=== PATIENT | female | born 1970 | race Caucasian/White ===

== ENCOUNTER → 2020-10-30 | Outpatient (CLI) | payer BC | LOC: LABWHC1 14:55 | PROVIDERS: ATTEND Internal Medicine | DX: U07.1 COVID-19 (principal); R50.9 Fever, unspecified | CPT/HCPCS: U0003; C9803; U0005 ==

== ENCOUNTER 2024-01-03 09:25 | Inpatient (IN) | payer BC ==
[2024-01-03] MEDS: ACETAMINOPHEN TAB 500 MG TAB PO STA (10:13)
[2024-01-03] MEDS: KETOROLAC 15 MG/ML 1 ML VIAL IVP STA (10:34)
[2024-01-03] MEDS: ONDANSETRON 4 MG/2 ML VIAL IVP STA (10:35)
[2024-01-03] MEDS: SODIUM CHLORIDE 0.9% 1,000 ML IV STA (10:36)
[2024-01-03] MEDS: SODIUM CHLORIDE 0.9% 500 ML 500 ML IV STA (10:36)
[2024-01-03 11:05] LABS: Basophils % (A) 0 %; Eosinophils # (A) 0.2 k/uL (0-0.7); Eosinophils % (A) 1 %; HGB 15.2 gm/dL (11.4-16.0); Lymphocytes # (A) 0.3 k/uL (1.0-4.8); Lymphocytes % (A) 1 %; MCH 33.9 pg (25.0-35.0); MCHC 35.4 g/dL (31.0-37.0); MCV 95.8 fL (80.0-100.0); Mean Platelet Volume 9.2; Monocytes # (A) 0.6 k/uL (0-1.0); Monocytes % (A) 3 %; Neutrophils # (A) 17.8 k/uL (1.3-7.7); Neutrophils % (A) 94 %; Platelet Count 185 k/uL (150-450); RBC 4.49 m/uL (3.80-5.40); RDW 13.2 % (11.5-15.5)
--- NOTE | 2024-01-03 11:11 | CT ---
EXAMINATION TYPE: CT abdomen pelvis wo con CT DLP: 351.1 mGycm, Automated exposure control for dose reduction was used. DATE OF EXAM: 01/03/2024 10:53 AM COMPARISON: CT abdomen pelvis most recent from 04/03/2012 CLINICAL INDICATION:Female, 53 years old with history of flank pain; Right flank pain with grojn pres sure. History of renal stones. TECHNIQUE: Axial CT abdomen pelvis wo con;Sagittal and coronal reformats were created on a separate workstation. Contrast used: mL of , (none if empty) Oral contrast used: without Oral Contrast (none if empty) FINDINGS: LOWER CHEST: Unremarkable ABDOMEN LIVER: Unremarkable GALLBLADDER AND BILE DUCTS: Unremarkable. PANCREAS: Unremarkable. SPLEEN: Unremarkable. ADRENAL GLANDS: Unremarkable. KIDNEYS AND URETERS: Moderate right hydronephrosis and obstructing 6 mm calculus in the distal right ureter. Additional right renal pelvis calculus measuring 9 x 7 mm. Obstructing left renal calculi irving suring 2 mm. PELVIS BLADDER: Unremarkable REPRODUCTIVE: Unremarkable. ABDOMEN & PELVIS STOMACH AND BOWEL: No evidence of bowel obstruction. Scattered colonic diverticula. PERITONEUM/RETROPERITONEUM: No evidence of pneumoperitoneum or free fluid. VASCULATURE: No evidence of aortic aneurysm. MUSCULOSKELETAL: No acute osseous abnormalities LYMPH NODES: No gross evidence for lymphadenopathy. SOFT TISSUE/ABDOMINAL WALL: Fat-containing umbilical hernia. IMPRESSION: 1. Moderate right hydroureteronephrosis secondary obstructing 9 x 7 mm calculus in the renal pelvic junction and 6 mm calculus in the distal right ureter. Additional nonobstructing right calculi. Urolo gy consultation recommended. 2. Obstructing left renal calculi. 3. Colonic diverticulosis.
[2024-01-03 11:12] LABS: ALT 19 U/L (4-34); AST 25 U/L (14-36); African American GFR (CKD) >90 (>60 ml/min/1.73 sqM); Albumin 4.4 g/dL (3.5-5.0); Alkaline Phosphatase 99 U/L (38-126); Anion Gap 4 mmol/L; Blood Urea Nitrogen 15 mg/dL (7-17); Calcium 9.5 mg/dL (8.4-10.2); Carbon Dioxide 27 mmol/L (22-30); Chloride 104 mmol/L (98-107); Glucose 126 mg/dL (74-99); Lipase 97 U/L (23-300); Non-African American GFR(CKD) >90 (>60 ml/min/1.73 sqM); Sodium 135 mmol/L (137-145); Total Bilirubin 0.9 mg/dL (0.2-1.3); Total Protein 6.8 g/dL (6.3-8.2)
--- NOTE | 2024-01-03 12:07 | ED ---
General Adult HPI - General Chief complaint: Back Pain/Injury Stated complaint: abd and back pain Time Seen by Provider: 01/03/24 09:30 Source: patient, family, RN notes reviewed Mode of arrival: ambulatory Limitations: no limitations - History of Present Illness Initial comments: 53-year-old female presents emergency department chief complaint of right flank pain. Patient states that sudden onset of symptoms. She states she has lower abdominal pressure urgency to urinate and noted hematuria. Patient states she does have a history of kidney stone was noted to have a fever today she states that she did have some chills at home associated nausea. Patient states that the makes the pain feel better or worse at this time. Patient denies chest pain shortness of breath did not take any Tylenol Motrin prior to arrival. - Related Data Allergies Allergy/AdvReac Type Severity Reaction Status Date / Time No Known Allergies Allergy Verified 01/03/24 09:29 Review of Systems ROS Statement: Those systems with pertinent positive or pertinent negative responses have been documented in the HPI. ROS Other: All systems not noted in ROS Statement are negative. Past Medical History Past Medical History: No Reported History Past Surgical History: Section Additional Past Surgical History / Comment(s): breast augmentation Past Psychological History: Anxiety General Exam Limitations: no limitations General appearance: alert, in no apparent distress Head exam: Present: atraumatic, normocephalic, normal inspection Neck exam: Present: normal inspection. Absent: tenderness, meningismus, lymphadenopathy Respiratory exam: Present: normal lung sounds bilaterally. Absent: respiratory distress, wheezes, rales, rhonchi, stridor Cardiovascular Exam: Present: regular rate, normal rhythm, normal heart sounds. Absent: systolic murmur, diastolic murmur, rubs, gallop, clicks GI/Abdominal exam: Present: soft, tenderness, normal bowel sounds. Absent: distended, guarding, rebound, rigid Back exam: Present: CVA tenderness (R). Absent: CVA tenderness (L) Neurological exam: Present: alert, oriented X3 Skin exam: Present: warm, dry, intact, normal color. Absent: rash Course Vital Signs 01/03/24 01/03/24 09:27 11:35 Temperature 102.0 F H 101.1 F H Pulse Rate 95 Respiratory 16 Rate Blood Pressure 124/70 O2 Sat by Pulse 98 Oximetry Medical Decision Making - Medical Decision Making Was pt. sent in by a medical professional or institution (MARCEL Orellana, GEOPHYSICAL PROSPECTING PERMIT AGENT, urgent care, hospital, or alf...) When possible be specific @ -No Did you speak to anyone other than the patient for history (EMS, parent, family, police, friend...)? What history was obtained from this source @ -No Did you review nursing and triage notes (agree or disagree)? Why? @ -I reviewed and agree with nursing and triage notes Were old charts reviewed (outside hosp., previous admission, EMS record, old EKG, old radiological studies, urgent care reports/EKG's, alf records)? Report findings @ -No old charts were reviewed Differential Diagnosis (chest pain, altered mental status, abdominal pain women, abdominal pain men, vaginal bleeding, weakness, fever, dyspnea, syncope, headache, dizziness, GI bleed, back pain, seizure, CVA, palpatations, mental health, musculoskeletal)? @ -Differential Abdominal Pain Women: Appendicitis, Cholecystitis, diverticulosis, ischemic bowel, pancreatitis, hepatitis, UTI, gastroenteritis, AAA, incarcerated hernia, bowel obstruction, constipation, inflammatory bowel, hepatitis, peptic ulcer disease, splenic infarction, perforated viscus, vulvitis, ovarian torsion, PID, kidney stone, placenta abruption, this is not meant to be an all-inclusive list EKG interpreted by me (3pts min.). @ -None X-rays interpreted by me (1pt min.). @ -None done CT interpreted by me (1pt min.). @ -CT of the abdomen pelvis showing evidence of right UPJ stone 9 x 7 mm, right distal ureter calculus 6 mm, hydronephrosis U/S interpreted by me (1pt. min.). @ -None done What testing was considered but not performed or refused? (CT, X-rays, U/S, labs)? Why? @ -None What meds were considered but not given or refused? Why? @ -None Did you discuss the management of the patient with other professionals (professionals i.e. MARCEL Orellana, GEOPHYSICAL PROSPECTING PERMIT AGENT, lab, RT, psych nurse, social worker delinquency prevention, tire trimmer hand, teacher, disciplinary hearing officer, field nurse case manager)? Give summary @ -Dr. Tony regarding concerns for septic stone and CT findings. Recommends IV antibiotics admission and probable stent placement. Patient case discussed with Dr. Mcmillan for medical admission Was smoking cessation discussed for >3mins.? @ -No Was critical care preformed (if so, how long)? @ -No Were there social determinants of health that impacted care today? How? (Homelessness, low income, unemployed, alcoholism, drug addiction, transportation, low edu. Level, literacy, decrease access to med. care, penitentiary, rehab)? @ -No Was there de-escalation of care discussed even if they declined (Discuss DNR or withdrawal of care, Hospice)? DNR status @ -No What co-morbidities impacted this encounter? (DM, HTN, Smoking, COPD, CAD, Cancer, CVA, ARF, Chemo, Hep., AIDS, mental health diagnosis, sleep apnea, morbid obesity)? @ -None Was patient admitted / discharged? Hospital course, mention meds given and route, prescriptions, significant lab abnormalities, going to OR and other pertinent info. @ -The patient is on to have septic ureteral calculus on the right patient has UPJ stone and a distal right ureter stone patient's pain is improved blood cultures drawn, IV fluid bolus and maintenance fluids ordered, IV antibiotics ordered. Undiagnosed new problem with uncertain prognosis? @ -No Drug Therapy requiring intensive monitoring for toxicity (Heparin, Nitro, Insulin, Cardizem)? @ -No Were any procedures done? @ -No Diagnosis/symptom? @ -Right septic ureteral calculus Acute, or Chronic, or Acute on Chronic? @ -Acute Uncomplicated (without systemic symptoms) or Complicated (systemic symptoms)? @ -Complicated Side effects of treatment? @ -No Exacerbation, Progression, or Severe Exacerbation? @ -No Poses a threat to life or bodily function? How? (Chest pain, [place], AL, pneumonia, PE, COPD, DKA, ARF, appy, cholecystitis, CVA, Diverticulitis, Homicidal, Suicidal, threat to staff... and all critical care pts) @ -Yes possible sepsis - Lab Data Result diagrams: 01/03/24 10:25 01/03/24 10:25 Lab Results 01/03/24 01/03/24 01/03/24 Range/Units 10:25 10:25 10:25 WBC 19.0 H (3.8-10.6) k/uL RBC 4.49 (3.80-5.40) m/uL Hgb 15.2 (11.4-16.0) gm/dL Hct 43.0 (34.0-46.0) % MCV 95.8 (80.0-100.0) fL MCH 33.9 (25.0-35.0) pg MCHC 35.4 (31.0-37.0) g/dL RDW 13.2 (11.5-15.5) % Plt Count 185 (150-450) k/uL MPV 9.2 Neutrophils % 94 % Lymphocytes % 1 % Monocytes % 3 % Eosinophils % 1 % Basophils % 0 % Neutrophils # 17.8 H (1.3-7.7) k/uL Lymphocytes # 0.3 L (1.0-4.8) k/uL Monocytes # 0.6 (0-1.0) k/uL Eosinophils # 0.2 (0-0.7) k/uL Basophils # 0.0 (0-0.2) k/uL Sodium 135 L (137-145) mmol/L Potassium 4.0 (3.5-5.1) mmol/L Chloride 104 (98-107) mmol/L Carbon Dioxide 27 (22-30) mmol/L Anion Gap 4 mmol/L BUN 15 (7-17) mg/dL Creatinine 0.75 (0.52-1.04) mg/dL Est GFR (CKD-EPI)AfAm >90 (>60 ml/min/1.73 sqM) Est GFR (CKD-EPI)NonAf >90 (>60 ml/min/1.73 sqM) Glucose 126 H (74-99) mg/dL Plasma Lactic Acid Shane (0.7-2.0) mmol/L Calcium 9.5 (8.4-10.2) mg/dL Total Bilirubin 0.9 (0.2-1.3) mg/dL AST 25 (14-36) U/L ALT 19 (4-34) U/L Alkaline Phosphatase 99 (38-126) U/L Total Protein 6.8 (6.3-8.2) g/dL Albumin 4.4 (3.5-5.0) g/dL Lipase 97 (23-300) U/L Urine Color Colorless Urine Appearance Cloudy H (Clear) Urine pH 6.5 (5.0-8.0) Ur Specific Hurley 1.010 (1.001-1.035) Urine Protein 1+ H (Negative) Urine Glucose (UA) Negative (Negative) Urine Ketones Negative (Negative) Urine Blood Moderate H (Negative) Urine Nitrite Negative (Negative) Urine Bilirubin Negative (Negative) Urine Urobilinogen <2.0 (<2.0) mg/dL Ur Leukocyte Esterase Large H (Negative) Urine RBC 133 H (0-5) /hpf Urine WBC >182 H (0-5) /hpf Ur Squamous Epith Cells <1 (0-4) /hpf Urine Bacteria Rare H (None) /hpf 01/03/24 Range/Units 10:25 WBC (3.8-10.6) k/uL RBC (3.80-5.40) m/uL Hgb (11.4-16.0) gm/dL Hct (34.0-46.0) % MCV (80.0-100.0) fL MCH (25.0-35.0) pg MCHC (31.0-37.0) g/dL RDW (11.5-15.5) % Plt Count (150-450) k/uL MPV Neutrophils % % Lymphocytes % % Monocytes % % Eosinophils % % Basophils % % Neutrophils # (1.3-7.7) k/uL Lymphocytes # (1.0-4.8) k/uL Monocytes # (0-1.0) k/uL Eosinophils # (0-0.7) k/uL Basophils # (0-0.2) k/uL Sodium (137-145) mmol/L Potassium (3.5-5.1) mmol/L Chloride (98-107) mmol/L Carbon Dioxide (22-30) mmol/L Anion Gap mmol/L BUN (7-17) mg/dL Creatinine (0.52-1.04) mg/dL Est GFR (CKD-EPI)AfAm (>60 ml/min/1.73 sqM) Est GFR (CKD-EPI)NonAf (>60 ml/min/1.73 sqM) Glucose (74-99) mg/dL Plasma Lactic Acid Shane 1.3 (0.7-2.0) mmol/L Calcium (8.4-10.2) mg/dL Total Bilirubin (0.2-1.3) mg/dL AST (14-36) U/L ALT (4-34) U/L Alkaline Phosphatase (38-126) U/L Total Protein (6.3-8.2) g/dL Albumin (3.5-5.0) g/dL Lipase (23-300) U/L Urine Color Urine Appearance (Clear) Urine pH (5.0-8.0) Ur Specific Hurley (1.001-1.035) Urine Protein (Negative) Urine Glucose (UA) (Negative) Urine Ketones (Negative) Urine Blood (Negative) Urine Nitrite (Negative) Urine Bilirubin (Negative) Urine Urobilinogen (<2.0) mg/dL Ur Leukocyte Esterase (Negative) Urine RBC (0-5) /hpf Urine WBC (0-5) /hpf Ur Squamous Epith Cells (0-4) /hpf Urine Bacteria (None) /hpf Disposition Clinical Impression: Right ureteral calculus, UTI (urinary tract infection) Disposition: ADMITTED IP TO THIS HOSP Condition: Fair Referrals: Yady Valentino MD [Primary Care Provider] - 1-2 days Time of Disposition: 12:32
[2024-01-03 12:15] LABS: Appearance,Urine Cloudy (Clear); Bacteria,Urine Rare /hpf; Bilirubin,Urine Negative (Negative); Blood,Urine Moderate (Negative); Color,Urine Colorless; Glucose,Urine (UA) Negative (Negative); Ketones,Urine Negative (Negative); Leukocyte Esterase,Urine Large (Negative); Nitrite,Urine Negative (Negative); PH, Urine 6.5 (5.0-8.0); Protein,Urine 1+ (Negative); RBC,Urine 133 /hpf (0-5); Squamous Epithelial Cell,Urine <1 /hpf (0-4); Urobilinogen,Urine <2.0 mg/dL (<2.0); WBC,Urine >182 /hpf (0-5)
[2024-01-03] MEDS ORDERED: NALOXONE 0.4 MG/ML 1 ML VIAL IV PRN (12:32)
[2024-01-03] MEDS ORDERED: ONDANSETRON 4 MG/2 ML VIAL IVP PRN (12:32)
[2024-01-03] MEDS: SODIUM CHLORIDE 0.9% 1,000 ML IV SCH (12:48)
[2024-01-03] MEDS: KETOROLAC 15 MG/ML 1 ML VIAL IVP PRN (15:23)
[2024-01-03] MEDS: HYDROmorphone 0.5 MG/0.5 ML SYRINGE IVP PRN (17:40)
[2024-01-04] MEDS: ACETAMINOPHEN TAB 325 MG TAB PO PRN (01:33)
[2024-01-04] MEDS: SERTRALINE 50 MG TAB PO SCH (08:35)
--- NOTE | 2024-01-04 09:08 | P.GSCN ---
History of Present Illness Consult date: 01/04/24 Reason for Consult: Right ureteral stone, UTI History of present illness: This is a 53-year-old female that presented to the hospital with intractable pain along the right flank associated with nausea, and fevers. Underwent a CT abdomen and pelvis in the ER that showed evidence of a 9 mm right-sided proximal stone, and a 6 mm right-sided distal stone. She was febrile on presentation with a temperature of 102. Denies any dysuria or gross hematuria. Does have previous history of kidney stones which she has passed spontaneously. At this point she continues to have right flank pain. Review of Systems - Constitutional Reports chills, Reports fever - EENT Ears, nose, mouth and throat: Denies dysphagia - Cardiovascular Denies chest pain, Denies shortness of breath - Respiratory Denies cough, Denies 7 - Gastrointestinal Reports abdominal pain, Reports nausea - Genitourinary Genitourinary: Reports flank pain, Reports kidney stones, Denies dysuria, Denies hematuria Past Medical History Past Medical History: No Reported History History of Any Multi-Drug Resistant Organisms: None Reported Past Surgical History: Section Additional Past Surgical History / Comment(s): breast augmentation Past Anesthesia/Blood Transfusion Reactions: No Reported Reaction Past Psychological History: Anxiety Smoking Status: Light tobacco smoker Medications and Allergies Home Medications Medication Instructions Recorded Confirmed Type Sertraline [Zoloft] 50 mg PO DAILY 01/03/24 01/03/24 History Allergies Allergy/AdvReac Type Severity Reaction Status Date / Time No Known Allergies Allergy Verified 01/03/24 12:56 Surgical - Exam Vital Signs Temp Pulse Resp BP Pulse Ox 102.0 F H 95 16 124/70 98 01/03/24 09:27 01/03/24 09:27 01/03/24 09:27 01/03/24 09:27 01/03/24 09:27 - General no distress, moderate pain - Eyes normal ocular movement, no pale - ENT normal nares, normal mucosa - Respiratory normal expansion, normal respiratory effort - Abdomen Abdomen: soft, non tender, no distended - Psychiatric oriented to time, oriented to person, oriented to place Results - Labs 01/03/24 10:25 01/03/24 10:25 Abnormal Lab Results - Last 24 Hours (Table) 01/03/24 01/03/24 01/03/24 Range/Units 10:25 10:25 10:25 WBC 19.0 H (3.8-10.6) k/uL Neutrophils # 17.8 H (1.3-7.7) k/uL Lymphocytes # 0.3 L (1.0-4.8) k/uL Sodium 135 L (137-145) mmol/L Glucose 126 H (74-99) mg/dL Urine Appearance Cloudy H (Clear) Urine Protein 1+ H (Negative) Urine Blood Moderate H (Negative) Ur Leukocyte Esterase Large H (Negative) Urine RBC 133 H (0-5) /hpf Urine WBC >182 H (0-5) /hpf Urine Bacteria Rare H (None) /hpf Diabetes panel 01/03/24 Range/Units 10:25 Sodium 135 L (137-145) mmol/L Potassium 4.0 (3.5-5.1) mmol/L Chloride 104 (98-107) mmol/L Carbon Dioxide 27 (22-30) mmol/L BUN 15 (7-17) mg/dL Creatinine 0.75 (0.52-1.04) mg/dL Glucose 126 H (74-99) mg/dL Calcium 9.5 (8.4-10.2) mg/dL AST 25 (14-36) U/L ALT 19 (4-34) U/L Alkaline Phosphatase 99 (38-126) U/L Total Protein 6.8 (6.3-8.2) g/dL Albumin 4.4 (3.5-5.0) g/dL Calcium panel 01/03/24 Range/Units 10:25 Calcium 9.5 (8.4-10.2) mg/dL Albumin 4.4 (3.5-5.0) g/dL Pituitary panel 01/03/24 Range/Units 10:25 Sodium 135 L (137-145) mmol/L Potassium 4.0 (3.5-5.1) mmol/L Chloride 104 (98-107) mmol/L Carbon Dioxide 27 (22-30) mmol/L BUN 15 (7-17) mg/dL Creatinine 0.75 (0.52-1.04) mg/dL Glucose 126 H (74-99) mg/dL Calcium 9.5 (8.4-10.2) mg/dL Adrenal panel 01/03/24 Range/Units 10:25 Sodium 135 L (137-145) mmol/L Potassium 4.0 (3.5-5.1) mmol/L Chloride 104 (98-107) mmol/L Carbon Dioxide 27 (22-30) mmol/L BUN 15 (7-17) mg/dL Creatinine 0.75 (0.52-1.04) mg/dL Glucose 126 H (74-99) mg/dL Calcium 9.5 (8.4-10.2) mg/dL Total Bilirubin 0.9 (0.2-1.3) mg/dL AST 25 (14-36) U/L ALT 19 (4-34) U/L Alkaline Phosphatase 99 (38-126) U/L Total Protein 6.8 (6.3-8.2) g/dL Albumin 4.4 (3.5-5.0) g/dL - Imaging CT scan - abdomen: image reviewed (9 mm right-sided proximal stone, 6 mm right- sided distal stone with severe hydronephrosis) Assessment and Plan Assessment: 53-year-old female presents to the hospital with sepsis secondary to 2 right- sided ureteral stones. Discussed with her given her obstructive stone and her sepsis I do recommend proceeding with stent insertion. Discussed risk benefit and rationale of surgery. Discussed she will eventually require right-sided ureteroscopy with holmium laser and stent removal at a later date once her infection resolves -Keep n.p.o., can have a diet after surgery -OR for cystoscopy and a right sided stent insertion
[2024-01-04] MEDS ORDERED: fentaNYL (PF) 50 MCG/ML 2 ML AMP ONE (09:16)
[2024-01-04] MEDS ORDERED: PROPOFOL 10 MG/ML 20 ML VIAL IV ONE (09:16)
[2024-01-04] MEDS ORDERED: MIDAZOLAM 2 MG/2 ML VIAL ONE (09:16)
[2024-01-04] MEDS ORDERED: KETAMINE HCL IN 0.9 % NACL 50 MG/5 ML SYRINGE ONE (09:16)
[2024-01-04 09:32] LABS: Basophils # (A) 0.06 X 10*3/uL (0.00-0.10); Basophils % (A) 0.3 %; Eosinophils # (A) 0.01 X 10*3/uL (0.04-0.35); Eosinophils % (A) 0.1 %; HCT 38.6 % (37.2-46.3); HGB 12.5 g/dL (12.0-15.0); Lymphocytes # (A) 0.84 X 10*3/uL (0.90-5.00); Lymphocytes % (A) 4.3 %; MCH 31.9 pg (27.0-32.0); MCHC 32.4 g/dL (32.0-37.0); MCV 98.5 FL (80.0-97.0); Mean Platelet Volume 11.8 FL (9.5-12.2); Monocytes # (A) 0.87 X 10*3/uL (0.20-1.00); Monocytes % (A) 4.4 %; NRBC Per 100 WBC 0 X 10*3/uL (0.00-0.01); Neutrophils # (A) 17.79 X 10*3/uL (1.80-7.70); Neutrophils % (A) 90.3 %; Platelet Count 132 X 10*3/uL (140-440); RBC 3.92 X 10*6/uL (4.10-5.20); RDW 14.2 % (11.5-14.5); WBC 19.68 X 10*3/uL (4.50-10.00)
--- NOTE | 2024-01-04 09:42 | P.OP ---
Date of Procedure: 01/04/24 Preoperative Diagnosis: Right ureteral stone Postoperative Diagnosis: Same Procedure(s) Performed: Cystoscopy with a right-sided stent insertion Implants: 6 Irish by 24 cm stent in the right ureter Anesthesia: MAC Surgeon: Chet Tony Estimated Blood Loss (ml): 1 Pathology: none sent Condition: stable Disposition: PACU Indications for Procedure: This is a 53-year-old female that presented to the hospital with intractable pain along the right flank associated with nausea, and fevers. Underwent a CT abdomen and pelvis in the ER that showed evidence of a 9 mm right-sided proximal stone, and a 6 mm right-sided distal stone. She was febrile on presentation with a temperature of 102. Discussed with her given the obstructive stone in her sepsis I do recommend proceeding with stent insertion. Risk benefit and rationale of surgery was discussed. Discussed she will eventually require right-sided ureteroscopy with holmium laser and stent removal as an outpatient once her infection resolves. Description of Procedure: Patient brought to the operating room, sedation was induced. She was prepped and draped in sterile fashion and placed in a dorsolithotomy position. Cystoscopy through the 22 Irish sheath was inserted per urethra, cystoscopy was performed showed no abnormality within the bladder. The right ureter orifice was visualized and intubated with a sensor wire, I was able to navigate the wire passed both stones and into the collecting system, of note the proximal stone was . Next a ureteral stent was passed over the wire, the proximal curl was visualized on fluoroscopy and the distal curl was visualized using the cystoscope, significant amount of cloudy urine drained from the kidney. Patient tolerated procedure was taken to recovery in stable condition
[2024-01-04] MEDS: IV FLUID CONTINUATION 600 ML IV ONE (09:52)
[2024-01-04 09:59] LABS: Blood Urea Nitrogen 15.9 mg/dL (9.0-27.0); Calcium 8.4 mg/dL (8.7-10.3); Carbon Dioxide 22.8 mmol/L (21.6-31.8); Chloride 104 mmol/L (96-109); Glucose 97 mg/dL (70-110); Potassium 4.2 mmol/L (3.5-5.5); Sodium 139 mmol/L (135-145)
--- NOTE | 2024-01-04 10:13 | FL ---
EXAMINATION TYPE: FL guidance operating room Intraoperative/procedural fluoroscopic services were pro vided. Total fluoroscopy time is 21.8 seconds with a total of 3 submitted images to PACS. Please see the operative/procedural note for further details. DAP: 3.7061 Gycm2
[2024-01-04] MEDS: ACETAMINOPHEN IV (For NPO) 1,000 MG in EMPTY BAG 1 BAG IVPB ONE (10:17)
[2024-01-04] MEDS: LACTATED RINGERS 1,000 ML BAG IV STA (10:40)
[2024-01-04] MEDS: CEFEPIME 2 GM in SODIUM CHLORIDE 0.9% 100 ML IVPB SCH (10:47)
[2024-01-04] MEDS: IV FLUID CONTINUATION 1,000 ML IV ONE (10:55)
--- NOTE | 2024-01-04 16:18 | P.HPIM ---
History of Present Illness H&P Date: 01/03/24 Chief Complaint: Abdominal/flank pain 53-year-old female presents emergency department chief complaint of right flank pain. Patient states that sudden onset of symptoms. She states she has lower abdominal pressure urgency to urinate and noted hematuria. Patient states she does have a history of kidney stone was noted to have a fever today she states that she did have some chills at home associated nausea. Patient states that the makes the pain feel better or worse at this time. Patient denies chest pain shortness of breath did not take any Tylenol Motrin prior to arrival. Underwent a CT abdomen and pelvis in the ER that showed evidence of a 9 mm right-sided proximal stone, and a 6 mm right-sided distal stone. She was febrile on presentation with a temperature of 102. Denies any dysuria or gross hematuria. Does have previous history of kidney stones which she has passed spontaneously. Lab review shows WBC of 19.2, hemoglobin of 15.2 and platelet count of 185, sodium 135, potassium 4.2, BUNs/creatinine of 15/0.75 and blood glucose of 126 UA is positive for blood, large leukocyte esterase WBCs greater than 182 and bacteria Review of Systems REVIEW OF SYSTEMS: CONSTITUTIONAL: No fever, no malaise, no fatigue. HEENT: No recent visual problems or hearing problems. Denied any sore throat. CARDIOVASCULAR: No chest pain, orthopnea, PND, no palpitations, no syncope. PULMONARY: No shortness of breath, no cough, no hemoptysis. GASTROINTESTINAL: No diarrhea, no nausea, no vomiting, no abdominal pain. NEUROLOGICAL: No headaches, no weakness, no numbness. HEMATOLOGICAL: Denies any bleeding or petechiae. GENITOURINARY: Denies any burning micturition, frequency, or urgency. MUSCULOSKELETAL/RHEUMATOLOGICAL: Denies any joint pain, swelling, or any muscle pain. ENDOCRINE: Denies any polyuria or polydipsia. The rest of the 14-point review of systems is negative. Past Medical History Past Medical History: No Reported History Past Surgical History: Section Additional Past Surgical History / Comment(s): breast augmentation Past Psychological History: Anxiety Medications and Allergies Home Medications Medication Instructions Recorded Confirmed Type Sertraline [Zoloft] 50 mg PO DAILY 01/03/24 01/03/24 History Allergies Allergy/AdvReac Type Severity Reaction Status Date / Time No Known Allergies Allergy Verified 01/03/24 12:56 Physical Exam Vitals: Vital Signs Temp Pulse Resp BP Pulse Ox 01/03/24 11:35 101.1 F H 01/03/24 09:27 102.0 F H 95 16 124/70 98 Intake and Output 01/02/24 01/03/24 01/03/24 22:59 06:59 14:59 Other: Weight 58.967 kg General appearance: alert, in no apparent distress Head exam: Present: atraumatic, normocephalic, normal inspection Neck exam: Present: normal inspection. Absent: tenderness, meningismus, lymphadenopathy Respiratory exam: Present: normal lung sounds bilaterally. Absent: respiratory distress, wheezes, rales, rhonchi, stridor Cardiovascular Exam: Present: regular rate, normal rhythm, normal heart sounds. Absent: systolic murmur, diastolic murmur, rubs, gallop, clicks GI/Abdominal exam: Present: soft, tenderness, normal bowel sounds. Absent: distended, guarding, rebound, rigid Back exam: Present: CVA tenderness (R). Absent: CVA tenderness (L) Neurological exam: Present: alert, oriented X3 Skin exam: Present: warm, dry, intact, normal color. Absent: rash Results CBC & Chem 7: 01/04/24 04:21 01/04/24 04:21 Labs: Abnormal Lab Results - Last 24 Hours (Table) 01/03/24 01/03/24 01/03/24 Range/Units 10:25 10:25 10:25 WBC 19.0 H (3.8-10.6) k/uL Neutrophils # 17.8 H (1.3-7.7) k/uL Lymphocytes # 0.3 L (1.0-4.8) k/uL Sodium 135 L (137-145) mmol/L Glucose 126 H (74-99) mg/dL Urine Appearance Cloudy H (Clear) Urine Protein 1+ H (Negative) Urine Blood Moderate H (Negative) Ur Leukocyte Esterase Large H (Negative) Urine RBC 133 H (0-5) /hpf Urine WBC >182 H (0-5) /hpf Urine Bacteria Rare H (None) /hpf Assessment and Plan Assessment: 1. Right ureteral calculus -- CT of the abdomen reveals 9 mm right-sided proximal stone, 6 mm right-sided distal stone with severe hydronephrosis -- Patient has been placed on IV fluids and IV antibiotics; pain control with IV morphine -Urology is consulted 2. UTI; patient has been placed on IV antibiotics in form of Rocephin 2 g IV daily; we will monitor CBC, CRP and procalcitonin; blood cultures and urine cultures obtained 3. Sepsis; white blood count is elevated at 19, blood pressure is low at 91/57 -- Patient has been placed on IV fluids; IV antibiotics -- We will monitor CBC, CRP and procalcitonin; further recommendations once blood culture and urine cultures available 4. Depression; continue with home dose of Zoloft DVT prophylaxis; SCDs given need for procedure and next 12 hours CODE STATUS; full code
--- NOTE | 2024-01-04 16:19 | P.PN ---
Subjective Progress Note Date: 01/04/24 53-year-old female presents emergency department chief complaint of right flank pain. Patient states that sudden onset of symptoms. She states she has lower abdominal pressure urgency to urinate and noted hematuria. Patient states she does have a history of kidney stone was noted to have a fever today she states that she did have some chills at home associated nausea. Patient states that the makes the pain feel better or worse at this time. Patient denies chest pain shortness of breath did not take any Tylenol Motrin prior to arrival. Underwent a CT abdomen and pelvis in the ER that showed evidence of a 9 mm right-sided proximal stone, and a 6 mm right-sided distal stone. She was febrile on presentation with a temperature of 102. Denies any dysuria or gross hematuria. Does have previous history of kidney stones which she has passed spontaneously. Lab review shows WBC of 19.2, hemoglobin of 15.2 and platelet count of 185, sodium 135, potassium 4.2, BUNs/creatinine of 15/0.75 and blood glucose of 126 UA is positive for blood, large leukocyte esterase WBCs greater than 182 and bacteria --Blood culture is positive for gram-negative organisms; white blood count remains elevated; patient has been placed on IV cefepime -- Will consult ID for further recommendations Objective - Vital Signs Vital signs: Vital Signs Temp 100.7 F H 01/04/24 09:49 Pulse 65 01/04/24 11:18 Resp 16 01/04/24 11:18 BP 92/50 01/04/24 11:28 Pulse Ox 98 01/04/24 11:18 FiO2 Intake & Output 01/03/24 01/04/24 01/04/24 18:59 06:59 18:59 Intake Total 1200 Balance 1200 Weight 58.967 kg Intake: IV 1200 Other: Voiding Method Toilet # Voids 4 # Bowel Movements 0 - Exam General appearance: alert, in no apparent distress Head exam: Present: atraumatic, normocephalic, normal inspection Neck exam: Present: normal inspection. Absent: tenderness, meningismus, lymphadenopathy Respiratory exam: Present: normal lung sounds bilaterally. Absent: respiratory distress, wheezes, rales, rhonchi, stridor Cardiovascular Exam: Present: regular rate, normal rhythm, normal heart sounds. Absent: systolic murmur, diastolic murmur, rubs, gallop, clicks GI/Abdominal exam: Present: soft, tenderness, normal bowel sounds. Absent: distended, guarding, rebound, rigid Back exam: Present: CVA tenderness (R). Absent: CVA tenderness (L) Neurological exam: Present: alert, oriented X3 Skin exam: Present: warm, dry, intact, normal color. Absent: rash - Labs CBC & Chem 7: 01/04/24 04:21 01/04/24 04:21 Labs: Abnormal Lab Results - Last 24 Hours (Table) 01/03/24 01/04/24 01/04/24 Range/Units 10:25 04:21 04:21 WBC 19.68 H (4.50-10.00) X 10*3/uL RBC 3.92 L (4.10-5.20) X 10*6/uL MCV 98.5 H (80.0-97.0) FL Plt Count 132 L (140-440) X 10*3/uL Immature Gran # 0.11 H (0.00-0.04) X 10*3/uL Neutrophils # 17.79 H (1.80-7.70) X 10*3/uL Lymphocytes # 0.84 L (0.90-5.00) X 10*3/uL Eosinophils # 0.01 L (0.04-0.35) X 10*3/uL Anion Gap 12.20 H (4.00-12.00) mmol/L Calcium 8.4 L (8.7-10.3) mg/dL Urine Appearance Cloudy H (Clear) Urine Protein 1+ H (Negative) Urine Blood Moderate H (Negative) Ur Leukocyte Esterase Large H (Negative) Urine RBC 133 H (0-5) /hpf Urine WBC >182 H (0-5) /hpf Urine Bacteria Rare H (None) /hpf Microbiology - Last 24 Hours (Table) 01/03/24 12:12 Blood Culture Gram Stain - Preliminary Blood Blood Culture - Preliminary Molecular ID 01/03/24 11:57 Blood Culture Gram Stain - Preliminary Blood Assessment and Plan Assessment: 1. Right ureteral calculus -- CT of the abdomen reveals 9 mm right-sided proximal stone, 6 mm right-sided d istal stone with severe hydronephrosis -- Patient has been placed on IV fluids and IV antibiotics; pain control with IV morphine -Urology is consulted 2. UTI; patient has been placed on IV antibiotics in form of Rocephin 2 g IV daily; we will monitor CBC, CRP and procalcitonin; blood cultures and urine cultures obtained 3. Sepsis; white blood count is elevated at 19, blood pressure is low at 91/57 -- Patient has been placed on IV fluids; IV antibiotics -- We will monitor CBC, CRP and procalcitonin; further recommendations once blood culture and urine cultures available 4. Depression; continue with home dose of Zoloft DVT prophylaxis; SCDs given need for procedure and next 12 hours CODE STATUS; full code
[2024-01-05 09:23] LABS: BUN/Creat Ratio 23.29 Ratio (12.00-20.00); Blood Urea Nitrogen 16.3 mg/dL (9.0-27.0); Calcium 7.9 mg/dL (8.7-10.3); Carbon Dioxide 19.7 mmol/L (21.6-31.8); Chloride 108 mmol/L (96-109); Glucose 87 mg/dL (70-110); Potassium 3.8 mmol/L (3.5-5.5); Sodium 140 mmol/L (135-145)
--- NOTE | 2024-01-05 09:42 | P.PN ---
Subjective Progress Note Date: 01/05/24 The patient underwent cystoscopy with placement of a right double-J catheter for an obstructing stone and pyelonephrosis yesterday by . She has done well overnight. She still doesn't feel great. Her vital signs are stable. Objective - Vital Signs Vital signs: Vital Signs Temp 99.8 F H 01/05/24 07:29 Pulse 60 01/05/24 08:00 Resp 19 01/05/24 08:00 BP 139/77 01/05/24 07:29 Pulse Ox 95 01/05/24 07:29 FiO2 Intake & Output 01/04/24 01/05/24 01/05/24 18:59 06:59 18:59 Intake Total 2470 Balance 2470 Intake: IV 1200 Intake, IV Titration 1270 Amount Cefepime 2 gm In Sodium 100 Chloride 0.9% 100 ml @ 25 mls/hr IVPB Q8HR [facility] Rx# :[id number] Sodium Chloride 0.9% 1, 1170 000 ml @ 130 mls/hr IV . Q7H42M [facility] Rx#:[id number] Other: Voiding Method Toilet Toilet Toilet # Voids 5 5 2 # Bowel Movements 0 - Labs CBC & Chem 7: 01/04/24 04:21 01/05/24 04:26 Labs: Abnormal Lab Results - Last 24 Hours (Table) 01/04/24 01/04/24 01/05/24 Range/Units 04:21 11:48 04:26 Carbon Dioxide (21.6-31.8) mmol/L Anion Gap 12.20 H (4.00-12.00) mmol/L BUN/Creatinine Ratio (12.00-20.00) Ratio Calcium 8.4 L (8.7-10.3) mg/dL Procalcitonin 1.34 H 1.01 H (0.02-0.09) ng/mL 01/05/24 Range/Units 04:26 Carbon Dioxide 19.7 L (21.6-31.8) mmol/L Anion Gap 12.30 H (4.00-12.00) mmol/L BUN/Creatinine Ratio 23.29 H (12.00-20.00) Ratio Calcium 7.9 L (8.7-10.3) mg/dL Procalcitonin (0.02-0.09) ng/mL Microbiology - Last 24 Hours (Table) 01/03/24 10:25 Urine Culture - Preliminary Urine,Voided Gram Neg Bacilli 01/03/24 12:12 Blood Culture Gram Stain - Preliminary Blood Blood Culture - Preliminary Molecular ID 01/03/24 11:57 Blood Culture Gram Stain - Preliminary Blood Assessment and Plan Assessment: Impression: Status post stent placement for obstructing right ureteral stone, urinary tract infection with sepsis and pyelonephrosis. Recommendations: The patient will continue to have IV antibiotics. Upon discharge she should follow-up in our office. He'll need eventual cystoscopy and stent with stone removal. This is been discussed at length with the patient . She now appears to comprehend the status of her situation.
[2024-01-05 09:43] LABS: Basophils # (A) 0.03 X 10*3/uL (0.00-0.10); Basophils % (A) 0.3 %; Eosinophils # (A) 0.07 X 10*3/uL (0.04-0.35); Eosinophils % (A) 0.6 %; HCT 37.3 % (37.2-46.3); HGB 12.2 g/dL (12.0-15.0); Lymphocytes # (A) 0.65 X 10*3/uL (0.90-5.00); Lymphocytes % (A) 5.5 %; MCH 31.6 pg (27.0-32.0); MCHC 32.7 g/dL (32.0-37.0); MCV 96.6 FL (80.0-97.0); Mean Platelet Volume 11.9 FL (9.5-12.2); Monocytes # (A) 0.69 X 10*3/uL (0.20-1.00); Monocytes % (A) 5.8 %; NRBC Per 100 WBC 0 X 10*3/uL (0.00-0.01); Neutrophils # (A) 10.42 X 10*3/uL (1.80-7.70); Neutrophils % (A) 87.4 %; Platelet Count 102 X 10*3/uL (140-440); RBC 3.86 X 10*6/uL (4.10-5.20); RDW 14.1 % (11.5-14.5); WBC 11.91 X 10*3/uL (4.50-10.00)
--- NOTE | 2024-01-05 11:09 | P.CONS ---
History of Present Illness - Reason for Consult Consult date: 01/05/24 - History of Present Illness Patient is a 53-year-old female with no significant past medical history reported presenting to the hospital 2 days ago for evaluation of right flank pain that started the day of presentation to the hospital more of a sudden onset patient describes the pain to be sharp moderate to severe intensity did have some lower abdominal pressure urgency to urinate and did have some hematuria with the same and the patient was evaluated on presentation to the hospital the patient was febrile with a temperature of 102 F patient was not tachycardic hypotensive or hypoxic and no need for supplemental oxygen patient did have a white count of 19,000 repeat is 19.68 white count is pending from this morning creatinine is 1.0 urine was positive patient did have a abdominal pelvis CT moderate right hydroureteronephrosis secondary to obstructing 9X 7 mm stone with the patient was evaluated by urology and the patient status post cystoscopy and right ureteral stent placement patient blood cultures came back positive with Enterobacter infectious disease was consulted for further management of antibiotic therapy Past Medical History Past Medical History: No Reported History History of Any Multi-Drug Resistant Organisms: None Reported Past Surgical History: Section Additional Past Surgical History / Comment(s): breast augmentation Past Anesthesia/Blood Transfusion Reactions: No Reported Reaction Past Psychological History: Anxiety Medications and Allergies Home Medications Medication Instructions Recorded Confirmed Type Sertraline [Zoloft] 50 mg PO DAILY 01/03/24 01/03/24 History Allergies Allergy/AdvReac Type Severity Reaction Status Date / Time No Known Allergies Allergy Verified 01/03/24 12:56 Physical Exam Vitals: Vital Signs Temp Pulse Resp BP Pulse Ox 01/05/24 07:29 99.8 F H 60 19 139/77 95 01/05/24 01:55 99.5 F 68 16 137/84 98 01/04/24 18:15 98.0 F 79 18 113/76 96 01/04/24 14:00 97.5 F L 63 18 93/60 96 01/04/24 13:45 55 L 85/57 97 01/04/24 13:30 64 93/58 98 01/04/24 13:15 65 91/57 01/04/24 12:45 64 99/66 95 01/04/24 12:30 65 84 L 01/04/24 12:15 58 L 104/68 97 01/04/24 12:00 58 L 100/66 95 01/04/24 11:46 98.4 F 70 17 97/61 97 01/04/24 11:45 98.4 F 70 97/61 01/04/24 11:28 92/50 01/04/24 11:18 65 16 103/58 98 01/04/24 11:15 88/50 01/04/24 11:10 99/54 01/04/24 11:05 61 18 101/52 98 01/04/24 10:50 64 16 95/54 98 01/04/24 10:35 73 16 96/51 91 L 01/04/24 10:20 75 18 97/50 91 L 01/04/24 10:04 77 16 102/56 93 L 01/04/24 09:49 100.7 F H 80 18 105/55 97 Intake and Output 01/04/24 01/05/24 01/05/24 22:59 06:59 14:59 Intake Total 1270 Balance 1270 Intake: Intake, IV Titration 1270 Amount Cefepime 2 gm In Sodium 100 Chloride 0.9% 100 ml @ 25 mls/hr IVPB Q8HR [facility] Rx# :[id number] Sodium Chloride 0.9% 1, 1170 000 ml @ 130 mls/hr IV . Q7H42M [facility] Rx#:[id number] Other: Voiding Method Toilet # Voids 5 5 Results CBC & Chem 7: 01/05/24 04:26 01/05/24 04:26 Labs: Abnormal Lab Results - Last 24 Hours (Table) 01/04/24 01/04/24 01/04/24 Range/Units 04:21 04:21 11:48 WBC 19.68 H (4.50-10.00) X 10*3/uL RBC 3.92 L (4.10-5.20) X 10*6/uL MCV 98.5 H (80.0-97.0) FL Plt Count 132 L (140-440) X 10*3/uL Immature Gran # 0.11 H (0.00-0.04) X 10*3/uL Neutrophils # 17.79 H (1.80-7.70) X 10*3/uL Lymphocytes # 0.84 L (0.90-5.00) X 10*3/uL Eosinophils # 0.01 L (0.04-0.35) X 10*3/uL Anion Gap 12.20 H (4.00-12.00) mmol/L Calcium 8.4 L (8.7-10.3) mg/dL Procalcitonin 1.34 H (0.02-0.09) ng/mL Microbiology - Last 24 Hours (Table) 01/03/24 10:25 Urine Culture - Preliminary Urine,Voided Gram Neg Bacilli 01/03/24 12:12 Blood Culture Gram Stain - Preliminary Blood Blood Culture - Preliminary Molecular ID 01/03/24 11:57 Blood Culture Gram Stain - Preliminary Blood Assessment and Plan Plan: 1patient presented to the hospital with sepsis in this patient who did have a fever elevated white count source is complicated UTI in this patient who did have a right-sided hydroureteronephrosis requiring cystoscopy and right ureteral stent placement likely from enteric gram-negative bacteria. 2patient with a type of bacteremia source is likely complicated UTI. 3cefepime 2 g every 8 hours while waiting for the final sensitivities. We will follow on clinical condition and cultures to further adjust medication if needed Thank you for this consultation we will follow the patient along with you Dictation was produced using [employer] dictation software. please excuse any grammatical, word or spelling errors.
--- NOTE | 2024-01-06 00:02 | P.PN ---
Subjective Progress Note Date: 01/05/24 53-year-old female presents emergency department chief complaint of right flank pain. Patient states that sudden onset of symptoms. She states she has lower abdominal pressure urgency to urinate and noted hematuria. Patient states she does have a history of kidney stone was noted to have a fever today she states that she did have some chills at home associated nausea. Patient states that the makes the pain feel better or worse at this time. Patient denies chest pain shortness of breath did not take any Tylenol Motrin prior to arrival. Underwent a CT abdomen and pelvis in the ER that showed evidence of a 9 mm right-sided proximal stone, and a 6 mm right-sided distal stone. She was febrile on presentation with a temperature of 102. Denies any dysuria or gross hematuria. Does have previous history of kidney stones which she has passed spontaneously. Lab review shows WBC of 19.2, hemoglobin of 15.2 and platelet count of 185, sodium 135, potassium 4.2, BUNs/creatinine of 15/0.75 and blood glucose of 126 UA is positive for blood, large leukocyte esterase WBCs greater than 182 and bacteria --Blood culture is positive for gram-negative organisms; white blood count remains elevated; patient has been placed on IV cefepime. 01/05/2024 Patient is lying in the bed. Awake alert and oriented. Currently on room air. Still complains of right flank discomfort. Denies any dysuria or hematuria. No complaints of chest pain or shortness of breath. No fever no chills. Tmax 99.8 this morning. Patient is being continued on antibiotics on cefepime. Urine culture showed gram-negative bacilli and blood cultures showed Enterobacter cloacae complex. ID is on board. Laboratory pressure WBC 11.9 hemoglobin 12.2 and platelets 102 WBC trending down from 19.6 yesterday. BUN 16.3 and creatinine 0.7 and procalcitonin level trending down to 1.01 from 1.34. Current medications reviewed. Objective - Vital Signs Vital signs: Vital Signs Temp 99.8 F H 01/05/24 07:29 Pulse 60 01/05/24 08:00 Resp 19 01/05/24 08:00 BP 139/77 01/05/24 07:29 Pulse Ox 95 01/05/24 07:29 FiO2 Intake & Output 01/04/24 01/05/24 01/05/24 18:59 06:59 18:59 Intake Total 2470 Balance 2470 Intake: IV 1200 Intake, IV Titration 1270 Amount Cefepime 2 gm In Sodium 100 Chloride 0.9% 100 ml @ 25 mls/hr IVPB Q8HR [facility] Rx# :[id number] Sodium Chloride 0.9% 1, 1170 000 ml @ 130 mls/hr IV . Q7H42M [facility] Rx#:[id number] Other: Voiding Method Toilet Toilet Toilet # Voids 5 5 2 # Bowel Movements 0 - Exam - Exam General appearance: alert, in no apparent distress Head exam: Present: atraumatic, normocephalic, normal inspection Neck exam: Present: normal inspection. Absent: tenderness, meningismus, lymphadenopathy Respiratory exam: Present: normal lung sounds bilaterally. Absent: respiratory distress, wheezes, rales, rhonchi, stridor Cardiovascular Exam: Present: regular rate, normal rhythm, normal heart sounds. Absent: systolic murmur, diastolic murmur, rubs, gallop, clicks GI/Abdominal exam: Present: soft, tenderness, normal bowel sounds. Absent: distended, guarding, rebound, rigid Back exam: Present: CVA tenderness (R). Absent: CVA tenderness (L) Neurological exam: Present: alert, oriented X3 Skin exam: Present: warm, dry, intact, normal color. Absent: rash - Labs CBC & Chem 7: 01/05/24 04:26 01/05/24 04:26 Labs: Abnormal Lab Results - Last 24 Hours (Table) 01/04/24 01/05/24 01/05/24 Range/Units 11:48 04:26 04:26 WBC 11.91 H (4.50-10.00) X 10*3/uL RBC 3.86 L (4.10-5.20) X 10*6/uL Plt Count 102 L (140-440) X 10*3/uL Immature Gran # 0.05 H (0.00-0.04) X 10*3/uL Neutrophils # 10.42 H (1.80-7.70) X 10*3/uL Lymphocytes # 0.65 L (0.90-5.00) X 10*3/uL Carbon Dioxide (21.6-31.8) mmol/L Anion Gap (4.00-12.00) mmol/L BUN/Creatinine Ratio (12.00-20.00) Ratio Calcium (8.7-10.3) mg/dL Procalcitonin 1.34 H 1.01 H (0.02-0.09) ng/mL 01/05/24 Range/Units 04:26 WBC (4.50-10.00) X 10*3/uL RBC (4.10-5.20) X 10*6/uL Plt Count (140-440) X 10*3/uL Immature Gran # (0.00-0.04) X 10*3/uL Neutrophils # (1.80-7.70) X 10*3/uL Lymphocytes # (0.90-5.00) X 10*3/uL Carbon Dioxide 19.7 L (21.6-31.8) mmol/L Anion Gap 12.30 H (4.00-12.00) mmol/L BUN/Creatinine Ratio 23.29 H (12.00-20.00) Ratio Calcium 7.9 L (8.7-10.3) mg/dL Procalcitonin (0.02-0.09) ng/mL Microbiology - Last 24 Hours (Table) 01/03/24 11:57 Blood Culture Gram Stain - Preliminary Blood Blood Culture - Preliminary Enterobacter cloacae Complex 01/03/24 12:12 Blood Culture Gram Stain - Preliminary Blood Blood Culture - Preliminary Enterobacter cloacae Complex Molecular ID 01/03/24 10:25 Urine Culture - Preliminary Urine,Voided Gram Neg Bacilli Assessment and Plan Assessment: 1. Right ureteral calculus -- CT of the abdomen reveals 9 mm right-sided proximal stone, 6 mm right-sided distal stone with severe hydronephrosis - Urology is following. Patient is status post cystoscopy with right-sided stent insertion on 01/04/2024 --Continue with IV antibiotics; pain control with IV morphine. Patient is tolerating oral diet. 2. Acute UTI with gram-negative bacilli.; patient has been placed on IV antibiotics in form of Rocephin 2 g IV daily, changed to cefepime. Follow-up final blood cultures and urine culture.; we will monitor CBC, CRP and procalcitonin; ID is on board. 3. Sepsis; white blood count is elevated at 19, blood pressure is low at 91/57 -- Patient was given IV fluids; continue with IV antibiotics -- We will monitor CBC, CRP and procalcitonin; further recommendations once blood culture and urine cultures available 4. Depression; continue with home dose of Zoloft DVT prophylaxis; SCDs given need for procedure and next 12 hours CODE STATUS; full code Time with Patient: Greater than 30
[2024-01-06] MEDS: HEPARIN SODIUM,PORCINE 5,000 UNIT/ML 1 ML VIAL SQ SCH (00:14)
[2024-01-06] MEDS: SODIUM CHLORIDE 0.9% 1,000 ML IV SCH (00:28)
[2024-01-06 09:03] LABS: Chloride 110 mmol/L (96-109); Glucose 94 mg/dL (70-110); Potassium 3.4 mmol/L (3.5-5.5); Sodium 140 mmol/L (135-145)
[2024-01-06 09:04] LABS: Basophils # (A) 0.02 X 10*3/uL (0.00-0.10); Basophils % (A) 0.3 %; Calcium 7.8 mg/dL (8.7-10.3); Carbon Dioxide 19.7 mmol/L (21.6-31.8); Eosinophils % (A) 1.3 %; HCT 34.2 % (37.2-46.3); HGB 11.3 g/dL (12.0-15.0); Lymphocytes # (A) 0.96 X 10*3/uL (0.90-5.00); Lymphocytes % (A) 12.3 %; MCH 31.7 pg (27.0-32.0); MCV 96.1 FL (80.0-97.0); Mean Platelet Volume 12.5 FL (9.5-12.2); Monocytes # (A) 0.82 X 10*3/uL (0.20-1.00); Monocytes % (A) 10.5 %; NRBC Per 100 WBC 0 X 10*3/uL (0.00-0.01); Neutrophils # (A) 5.86 X 10*3/uL (1.80-7.70); Neutrophils % (A) 75.2 %; Platelet Count 98 X 10*3/uL (140-440); RBC 3.56 X 10*6/uL (4.10-5.20); WBC 7.79 X 10*3/uL (4.50-10.00)
--- NOTE | 2024-01-06 13:47 | P.PN ---
Subjective Progress Note Date: 01/06/24 Principal diagnosis: Reason for follow-up is gram-negative bacteremia and complicated UTI Patient is a 53-year-old female with no significant past medical history reported presenting to the hospital with right flank pain and this patient has been diagnosed with the complicated UTI CT did shows moderate right hydroureteronephrosis status post cystoscopy and right ureteral stent placement patient did have Enterobacter bacteremia prompting this consultation. On today's evaluation that is 01/06/2024, the patient continues to be afebrile, the patient is on room air and breathing comfortably, the Pt denies having any chest pain or cough, the patient denies having any any nausea vomiting or any diarrhea patient has right flank pain has decreased in intensity. Patient white count normalized to 7.79, creatinine 0.6 blood culture with Enterobacter sensitivities pending Objective - Vital Signs Vital signs: Vital Signs Temp 99.2 F 01/06/24 06:48 Pulse 54 L 01/06/24 06:48 Resp 15 01/06/24 06:48 BP 117/58 01/06/24 06:48 Pulse Ox 97 01/06/24 06:48 FiO2 Intake & Output 01/05/24 01/06/24 01/06/24 18:59 06:59 18:59 Other: Voiding Method Toilet Toilet # Voids 3 3 # Bowel Movements 0 - Exam Middle-age female lying in bed in no distress Respiratory system unlabored breathing decreased breath sound the base Heart S1-S2 regular Abdominal soft, no tenderness Extremities no edema feet Patient is awake alert oriented x 3 mood and affect is normal Exam compleetd with help of [employer]IR[employer] - Labs CBC & Chem 7: 01/06/24 03:40 01/06/24 03:40 Labs: Abnormal Lab Results - Last 24 Hours (Table) 01/05/24 01/05/24 01/05/24 Range/Units 04:26 04:26 04:26 WBC 11.91 H (4.50-10.00) X 10*3/uL RBC 3.86 L (4.10-5.20) X 10*6/uL Hgb (12.0-15.0) g/dL Hct (37.2-46.3) % Plt Count 102 L (140-440) X 10*3/uL MPV (9.5-12.2) FL Immature Gran # 0.05 H (0.00-0.04) X 10*3/uL Neutrophils # 10.42 H (1.80-7.70) X 10*3/uL Lymphocytes # 0.65 L (0.90-5.00) X 10*3/uL Potassium (3.5-5.5) mmol/L Chloride (96-109) mmol/L Carbon Dioxide 19.7 L (21.6-31.8) mmol/L Anion Gap 12.30 H (4.00-12.00) mmol/L BUN/Creatinine Ratio 23.29 H (12.00-20.00) Ratio Calcium 7.9 L (8.7-10.3) mg/dL Procalcitonin 1.01 H (0.02-0.09) ng/mL 01/06/24 01/06/24 Range/Units 03:40 03:40 WBC (4.50-10.00) X 10*3/uL RBC 3.56 L (4.10-5.20) X 10*6/uL Hgb 11.3 L (12.0-15.0) g/dL Hct 34.2 L (37.2-46.3) % Plt Count 98 L (140-440) X 10*3/uL MPV 12.5 H (9.5-12.2) FL Immature Gran # (0.00-0.04) X 10*3/uL Neutrophils # (1.80-7.70) X 10*3/uL Lymphocytes # (0.90-5.00) X 10*3/uL Potassium 3.4 L (3.5-5.5) mmol/L Chloride 110 H (96-109) mmol/L Carbon Dioxide 19.7 L (21.6-31.8) mmol/L Anion Gap (4.00-12.00) mmol/L BUN/Creatinine Ratio (12.00-20.00) Ratio Calcium 7.8 L (8.7-10.3) mg/dL Procalcitonin (0.02-0.09) ng/mL Microbiology - Last 24 Hours (Table) 01/03/24 11:57 Blood Culture Gram Stain - Preliminary Blood Blood Culture - Preliminary Enterobacter cloacae Complex 01/03/24 12:12 Blood Culture Gram Stain - Preliminary Blood Blood Culture - Preliminary Enterobacter cloacae Complex Molecular ID Assessment and Plan (1) Bacteremia due to Enterobacter species Current Visit: Yes Status: Acute Code(s): R78.81 - BACTEREMIA; B96.89 - OTH BACTERIAL AGENTS THE CAUSE OF DISEASES CLASSD [id number] SNOMED Code(s): 758420714250 (2) UTI (urinary tract infection) Current Visit: Yes Status: Acute Code(s): N39.0 - URINARY TRACT INFECTION, SITE NOT SPECIFIED SNOMED Code(s): 75173141 Plan: 1patient presented to the hospital with sepsis in this patient who did have a fever elevated white count source is complicated UTI in this patient who did have a right-sided hydroureteronephrosis requiring cystoscopy and right ureteral stent placement likely from enteric gram-negative bacteria. 2patient with Enterobacter bacteremia source is likely complicated UTI. 3patient to cefepime 2 g every 8 hours while waiting for the final sensitivities to determine her discharge antibiotics u Dictation was produced using [employer] dictation software. please excuse any grammatical, word or spelling errors. Time with Patient: Less than 30
[2024-01-06] MEDS: IPRATROPIUM-ALBUTEROL 3 ML NEB INHALATION PRN (22:15)
--- NOTE | 2024-01-06 22:33 | XR ---
EXAMINATION TYPE: XR chest 1V portable DATE OF EXAM: 01/06/2024 CLINICAL HISTORY: Difficulty breathing progress study. TECHNIQUE: Single AP portable upright view of the chest is obtained. COMPARISON: Chest x-ray from October 27, 2013 FINDINGS: Cardiac silhouette size upper limits of normal. Mild to moderate central vascular congestion is now present. No pleural effusion or pneumothorax seen bilaterally. Osseous structures are intact. IMPRESSION: New mild to moderate central vascular congestion consistent with fluid overload state.
[2024-01-06] MEDS: SIMETHICONE 40 MG/0.6 ML DROPS 2,000 MG/30 ML BOTTLE PO PRN (22:49)
[2024-01-06] MEDS: FUROSEMIDE 10 MG/ML 2 ML VIAL IV ONE (23:01)
[2024-01-07] MEDS ORDERED: Potassium Replacement Protocol 1 EACH MISC MISCELLANE PRN ×2 (02:47→09:39)
--- NOTE | 2024-01-07 06:13 | P.PN ---
Subjective Progress Note Date: 01/06/24 53-year-old female presents emergency department chief complaint of right flank pain. Patient states that sudden onset of symptoms. She states she has lower abdominal pressure urgency to urinate and noted hematuria. Patient states she does have a history of kidney stone was noted to have a fever today she states that she did have some chills at home associated nausea. Patient states that the makes the pain feel better or worse at this time. Patient denies chest pain shortness of breath did not take any Tylenol Motrin prior to arrival. Underwent a CT abdomen and pelvis in the ER that showed evidence of a 9 mm right-sided proximal stone, and a 6 mm right-sided distal stone. She was febrile on presentation with a temperature of 102. Denies any dysuria or gross hematuria. Does have previous history of kidney stones which she has passed spontaneously. Lab review shows WBC of 19.2, hemoglobin of 15.2 and platelet count of 185, sodium 135, potassium 4.2, BUNs/creatinine of 15/0.75 and blood glucose of 126 UA is positive for blood, large leukocyte esterase WBCs greater than 182 and bacteria --Blood culture is positive for gram-negative organisms; white blood count remains elevated; patient has been placed on IV cefepime. 01/05/2024 Patient is lying in the bed. Awake alert and oriented. Currently on room air. Still complains of right flank discomfort. Denies any dysuria or hematuria. No complaints of chest pain or shortness of breath. No fever no chills. Tmax 99.8 this morning. Patient is being continued on antibiotics on cefepime. Urine culture showed gram-negative bacilli and blood cultures showed Enterobacter cloacae complex. ID is on board. Laboratory pressure WBC 11.9 hemoglobin 12.2 and platelets 102 WBC trending down from 19.6 yesterday. BUN 16.3 and creatinine 0.7 and procalcitonin level trending down to 1.01 from 1.34. Current medications reviewed. 01/06/2024 Patient is seen in follow-up today reporting she is afebrile and her pain is somewhat controlled with less intense on the right flank. Urology and infectious disease following as well and patient is maintained on antibiotics with culture showing Enterobacter. Blood cultures are positive with repeat cultures obtained and pending at this time. Urology recommending continuing antibiotics and outpatient follow-up to discuss treatment plan outpatient. Patient is currently afebrile with no reports of chest pain or shortness of breath. Patient reports tolerating diet with no reported nausea or vomiting. Patient reports bloating and gas with no bowel movement as of yet. Will add gas drops Review of systems: Constitutional: No reports of fatigue, fever, or chills Cardiovascular: No reports of chest pain or palpitations Respiratory: No reports of shortness of breath or cough GI: No reports of nausea, vomiting, or diarrhea, reports no bowel movement and reporting having gas with bloating : No reports of dysuria or retention Neurovascular: No reports of weakness or numbness All medications have been reviewed Physical exam: Gen: This is a 53-year-old female who is awake, alert and oriented x 3, well- developed HEENT: Head is atraumatic, normocephalic. Pupils equal, round. Sclerae is anicteric. NECK: Supple. No JVD. No lymphadenopathy. No thyromegaly. LUNGS: Clear to auscultation. No wheezes or rhonchi. No intercostal retractions. HEART: Regular rate and rhythm. No murmur. ABDOMEN: Soft. Bowel sounds are present. No masses. No tenderness. Mild right flank tenderness EXTREMITIES: No pedal edema. No calf tenderness. NEUROLOGICAL: Patient is awake, alert and oriented x3. Cranial nerves 2 through 12 are grossly intact. Assessment: -Right ureteral calculus, CT of the abdomen reveals 9 mm right-sided proximal stone, 6 mm right-sided distal stone with severe hydronephrosis. Patient is status post cystoscopy with right-sided stent insertion on 01/04/2024 -Acute UTI with Enterobacter, present on admission -Sepsis, present on admission secondary to acute urinary tract infection -History of depression -GI prophylaxis -DVT prophylaxis -Full code Plan: Patient is continued on IV hydration and reports to eating, will consider discontinuing Patient reporting increased abdominal bloating and gas and reports has not had a bowel movement in a few days. Will continue bowel regimen and add gas drops Encouraged to increase activity as tolerated with frequent walking infectious disease following and cultures preliminary showing Enterobacter with positive blood cultures. Repeat blood cultures ordered and pending to monitor for clearance of bacteremia. Urology following recommending outpatient follow-up for stent removal and further intervention recommended continue with antibiotic therapy Patient is extremely anxious about wanting to go home. Patient is afebrile although cultures have not resulted discussed with the patient about awaiting finalized cultures to determine appropriate discharge antibiotics Will await finalized cultures with possible discharge planning in the next 24 to 48 hours The impression and plan of care has been dictated by Shelby Chan, Nurse Practitioner as directed. Dr. Kirill MD I have performed a history and examination and MDM of this patient, discussed the same with the dictator, and agree with the dictator's assessment and plan as written ,documented as a scribe. Based on total visit time, I have performed more than 50% of the visit. Objective - Vital Signs Vital signs: Vital Signs Temp 98.7 F 01/07/24 00:29 Pulse 80 01/07/24 00:29 Resp 17 01/07/24 00:29 BP 106/60 01/07/24 00:29 Pulse Ox 96 01/07/24 00:29 FiO2 Intake & Output 01/06/24 01/06/24 01/07/24 06:59 18:59 06:59 Other: Voiding Method Toilet Toilet Bedside Commode # Voids 3 2 1 - Labs CBC & Chem 7: 01/06/24 03:40 01/06/24 03:40 Labs: Abnormal Lab Results - Last 24 Hours (Table) 01/06/24 01/06/24 Range/Units 03:40 03:40 RBC 3.56 L (4.10-5.20) X 10*6/uL Hgb 11.3 L (12.0-15.0) g/dL Hct 34.2 L (37.2-46.3) % Plt Count 98 L (140-440) X 10*3/uL MPV 12.5 H (9.5-12.2) FL Potassium 3.4 L (3.5-5.5) mmol/L Chloride 110 H (96-109) mmol/L Carbon Dioxide 19.7 L (21.6-31.8) mmol/L Calcium 7.8 L (8.7-10.3) mg/dL Microbiology - Last 24 Hours (Table) 01/03/24 11:57 Blood Culture Gram Stain - Final Blood Blood Culture - Final Enterobacter cloacae Complex 01/03/24 12:12 Blood Culture Gram Stain - Final Blood Blood Culture - Final Enterobacter cloacae Complex Molecular ID
[2024-01-07] MEDS: POTASSIUM CHLORIDE ER 20 MEQ TAB.ER PO SCH ×2 (06:51→10:46)
[2024-01-07 07:48] LABS: African American GFR (CKD) >90 (>60 ml/min/1.73 sqM); Anion Gap 2 mmol/L; Blood Urea Nitrogen 10 mg/dL (7-17); Carbon Dioxide 26 mmol/L (22-30); Chloride 111 mmol/L (98-107); Glucose 98 mg/dL (74-99); Magnesium 1.6 mg/dL (1.6-2.3); Non-African American GFR(CKD) >90 (>60 ml/min/1.73 sqM); Potassium 3.4 mmol/L (3.5-5.1); Sodium 139 mmol/L (137-145)
[2024-01-07 07:49] LABS: Basophils % (A) 0 %; Eosinophils # (A) 0.1 k/uL (0-0.7); Eosinophils % (A) 1 %; HCT 34.2 % (34.0-46.0); Lymphocytes # (A) 0.9 k/uL (1.0-4.8); Lymphocytes % (A) 13 %; MCH 32.1 pg (25.0-35.0); MCHC 33.9 g/dL (31.0-37.0); MCV 94.8 fL (80.0-100.0); Mean Platelet Volume 9.6; Monocytes # (A) 0.8 k/uL (0-1.0); Monocytes % (A) 11 %; Neutrophils % (A) 71 %; Platelet Count 146 k/uL (150-450); RDW 13.6 % (11.5-15.5)
[2024-01-07 07:50] LABS: HGB 11.6 gm/dL (11.4-16.0)
[2024-01-07 08:12] VITALS: BP 103/68; PULSE 65; RESP 14; TEMP 98.8
[2024-01-07] MEDS ORDERED: Magnesium Replacement Protocol 1 EACH MISC MISCELLANE PRN (09:39)
--- NOTE | 2024-01-07 09:46 | P.PN ---
Subjective Progress Note Date: 01/07/24 53-year-old female presents emergency department chief complaint of right flank pain. Patient states that sudden onset of symptoms. She states she has lower abdominal pressure urgency to urinate and noted hematuria. Patient states she does have a history of kidney stone was noted to have a fever today she states that she did have some chills at home associated nausea. Patient states that the makes the pain feel better or worse at this time. Patient denies chest pain shortness of breath did not take any Tylenol Motrin prior to arrival. Underwent a CT abdomen and pelvis in the ER that showed evidence of a 9 mm right-sided proximal stone, and a 6 mm right-sided distal stone. She was febrile on presentation with a temperature of 102. Denies any dysuria or gross hematuria. Does have previous history of kidney stones which she has passed spontaneously. Lab review shows WBC of 19.2, hemoglobin of 15.2 and platelet count of 185, sodium 135, potassium 4.2, BUNs/creatinine of 15/0.75 and blood glucose of 126 UA is positive for blood, large leukocyte esterase WBCs greater than 182 and bacteria --Blood culture is positive for gram-negative organisms; white blood count remains elevated; patient has been placed on IV cefepime. 01/05/2024 Patient is lying in the bed. Awake alert and oriented. Currently on room air. Still complains of right flank discomfort. Denies any dysuria or hematuria. No complaints of chest pain or shortness of breath. No fever no chills. Tmax 99.8 this morning. Patient is being continued on antibiotics on cefepime. Urine culture showed gram-negative bacilli and blood cultures showed Enterobacter cloacae complex. ID is on board. Laboratory pressure WBC 11.9 hemoglobin 12.2 and platelets 102 WBC trending down from 19.6 yesterday. BUN 16.3 and creatinine 0.7 and procalcitonin level trending down to 1.01 from 1.34. Current medications reviewed. 01/06/2024 Patient is seen in follow-up today reporting she is afebrile and her pain is somewhat controlled with less intense on the right flank. Urology and infectious disease following as well and patient is maintained on antibiotics with culture showing Enterobacter. Blood cultures are positive with repeat cultures obtained and pending at this time. Urology recommending continuing antibiotics and outpatient follow-up to discuss treatment plan outpatient. Patient is currently afebrile with no reports of chest pain or shortness of breath. Patient reports tolerating diet with no reported nausea or vomiting. Patient reports bloating and gas with no bowel movement as of yet. Will add gas drops 01/07/2024 Patient is seen in follow-up today continuing to await for blood cultures for clearance of bacteremia. Patient is maintained on antibiotics reported some mild shortness of breath yesterday and x-ray was obtained showing some concerns for vascular congestion. Will discontinue IV fluids as patient is eating and drinking and tolerating and also give a small dose of Lasix. Patient is above 95% on room air and also had an encouraged and ordered incentive spirometer to use at least 10 times every hour while awake. Encouraged to increase activity as tolerated and walking frequently in the halls. Urology following and will follow-up outpatient for stent removal and further intervention in the outpatient setting. Review of systems: Constitutional: No reports of fatigue, fever, or chills Cardiovascular: No reports of chest pain or palpitations Respiratory: No reports of shortness of breath or cough GI: No reports of nausea, vomiting, or diarrhea, reports no bowel movement and reporting having gas with bloating : No reports of dysuria or retention Neurovascular: No reports of weakness or numbness All medications have been reviewed Physical exam: Gen: This is a 53-year-old female who is awake, alert and oriented x 3, well- developed HEENT: Head is atraumatic, normocephalic. Pupils equal, round. Sclerae is anicteric. NECK: Supple. No JVD. No lymphadenopathy. No thyromegaly. LUNGS: Clear to auscultation. No wheezes or rhonchi. No intercostal retractions. HEART: Regular rate and rhythm. No murmur. ABDOMEN: Soft. Bowel sounds are present. No masses. No tenderness. Mild right flank tenderness EXTREMITIES: No pedal edema. No calf tenderness. NEUROLOGICAL: Patient is awake, alert and oriented x3. Cranial nerves 2 through 12 are grossly intact. Assessment: -Right ureteral calculus, CT of the abdomen reveals 9 mm right-sided proximal stone, 6 mm right-sided distal stone with severe hydronephrosis. Patient is status post cystoscopy with right-sided stent insertion on 01/04/2024 -Acute UTI with Enterobacter, present on admission -Sepsis, present on admission secondary to acute urinary tract infection -History of depression -GI prophylaxis -DVT prophylaxis -Full code Plan: Patient is continued on IV hydration and was reporting some minimal shortness of breath. Chest x-ray suggestive of some vascular congestion and will give a dose of Lasix and discontinue IV fluids Patient reporting increased abdominal bloating and gas and reports has not had a bowel movement in a few days. Will continue bowel regimen and add gas drops Encouraged to increase activity as tolerated with frequent walking infectious disease following and cultures preliminary showing Enterobacter with positive blood cultures. Repeat blood cultures ordered and pending to monitor for clearance of bacteremia. Urology following recommending outpatient follow-up for stent removal and further intervention recommended continue with antibiotic therapy Patient is extremely anxious about wanting to go home. Patient is afebrile although cultures have not resulted discussed with the patient about awaiting finalized cultures to determine appropriate discharge antibiotics Will await finalized cultures with possible discharge planning in the next 24 to 48 hours The impression and plan of care has been dictated by Shelby Chan, Nurse Practitioner as directed. Dr. Kirill MD I have performed a history and examination and MDM of this patient, discussed th e same with the dictator, and agree with the dictator's assessment and plan as written ,documented as a scribe. Based on total visit time, I have performed more than 50% of the visit. Objective - Vital Signs Vital signs: Vital Signs Temp 98.8 F 01/07/24 07:22 Pulse 65 01/07/24 07:22 Resp 14 01/07/24 07:22 BP 103/68 01/07/24 07:22 Pulse Ox 96 01/07/24 08:35 FiO2 Intake & Output 01/06/24 01/07/24 01/07/24 18:59 06:59 18:59 Other: Voiding Method Toilet Bedside Commode # Voids 2 1 - Labs CBC & Chem 7: 01/07/24 07:17 01/07/24 07:17 Labs: Abnormal Lab Results - Last 24 Hours (Table) 01/07/24 01/07/24 Range/Units 07:17 07:17 RBC 3.60 L (3.80-5.40) m/uL Plt Count 146 L (150-450) k/uL Lymphocytes # 0.9 L (1.0-4.8) k/uL Potassium 3.4 L (3.5-5.1) mmol/L Chloride 111 H (98-107) mmol/L Calcium 8.0 L (8.4-10.2) mg/dL Microbiology - Last 24 Hours (Table) 01/03/24 11:57 Blood Culture Gram Stain - Final Blood Blood Culture - Final Enterobacter cloacae Complex 01/03/24 12:12 Blood Culture Gram Stain - Final Blood Blood Culture - Final Enterobacter cloacae Complex Molecular ID
[2024-01-07] MEDS: MAGNESIUM SULFATE-D5W PMX 1 GM in DEXTROSE/WATER 1 100ML.BAG IVPB ONE (13:07)
== END 2024-01-07 16:02 | disposition home or self-care (01) | DRG 854 ==
LOC: EC 09:25 → 4SSUR 14:07 → OBSVTOIN 01-05 11:46
PROVIDERS: ADMIT Internal Medicine; ATTEND Internal Medicine
PROC: 0T768DZ Dilation of Right Ureter with Intraluminal Device, Via Natural or Artificial Opening Endoscopic (ICD-10-PCS; principal; 2024-01-04 09:00)
DX: A41.50 Gram-negative sepsis, unspecified (principal); N13.6 Pyonephrosis; R65.20 Severe sepsis without septic shock; B96.89 Other specified bacterial agents as the cause of diseases classified elsewhere; F17.200 Nicotine dependence, unspecified, uncomplicated; F32.A Depression, unspecified; F41.9 Anxiety disorder, unspecified; Z79.899 Other long term (current) drug therapy; Z87.442 Personal history of urinary calculi; Z28.310 Unvaccinated for COVID-19; Z28.21 Immunization not carried out because of patient refusal
CPT/HCPCS: 36415; 71045; 74176; 80048; 80053; 81001; 83605; 83690; 83735; 84145; 85025; 87040; 87077; 87086; 87186; 94640; 94760; 96361; 96365; 96366; 96375; 96376; 99285

== ENCOUNTER 2024-01-20 09:05 | Day surgery (SDC) | payer BC ==
--- NOTE | 2024-01-20 08:58 | P.HPIHPCON ---
History of Present Illness H&P Date: 01/20/24 Chief Complaint: Right ureteral stone This is a 53-year-old female with history of 2 right-sided ureteral stone, patient presented septic on presentation underwent right-sided stent insertion on January 03. Presents today for definitive stone management. Option of right- sided ureteroscopy with holmium laser was discussed with her in detail. Aware the risk which includes but not limited to bleeding, infection, injury to the ureter Consent for Procedure: I have explained the operation/procedure to the patient, including the risks, benefits, side effects, alternative therapies (including not receiving the proposed treatment or service), the likelihood of the patient achieving his/her goals, and potential recuperation problems for the procedure/sedation/analgesia, as well as any blood products, if indicated. I also explained to the patient the risks, benefits and side effects of the alternatives, as well as the risks related to not receiving the proposed procedure, care, treatment, or services. Past Medical History Past Medical History: No Reported History Additional Past Medical History / Comment(s): kidney stones History of Any Multi-Drug Resistant Organisms: None Reported Past Surgical History: Breast Surgery, Section Additional Past Surgical History / Comment(s): breast augmentation c sections x2, urteral stent placed Past Anesthesia/Blood Transfusion Reactions: No Reported Reaction Smoking Status: Light tobacco smoker - Past Family History Father Family Medical History: No Reported History Medications and Allergies Home Medications Medication Instructions Recorded Confirmed Type Sertraline [Zoloft] 50 mg PO DAILY 01/03/24 01/15/24 History Acetaminophen Tab [Tylenol] 650 mg PO Q6HR PRN tab 01/07/24 01/15/24 Rx Ciprofloxacin HCl [Cipro] 500 mg PO Q12HR #24 tab 01/07/24 01/15/24 Rx Allergies Allergy/AdvReac Type Severity Reaction Status Date / Time No Known Allergies Allergy Verified 01/15/24 13:52 Surgical - Exam - General no distress, moderate pain - Eyes normal ocular movement, no pale - ENT normal nares, normal mucosa - Respiratory normal expansion, normal respiratory effort - Abdomen Abdomen: soft, non tender Assessment and Plan Assessment: OR for right-sided ureteroscopy, holmium laser lithotripsy, stone basketing and stent removal
[2024-01-20] MEDS ORDERED: fentaNYL (PF) 50 MCG/ML 2 ML AMP IVP PRN (09:42)
[2024-01-20] MEDS ORDERED: HYDROmorphone 0.5 MG/0.5 ML SYRINGE IVP PRN (09:42)
[2024-01-20] MEDS ORDERED: LIDOCAINE 1% (10MG/ML) FOR IV START INTRADERMA PRN (09:42)
--- NOTE | 2024-01-20 09:53 | XR ---
EXAMINATION TYPE: XR KUB DATE OF EXAM: 01/20/2024 9:44 AM CLINICAL INDICATION:Female, 53 years old with history of N20.1 Right Ureteral Stone; [facility] COMPARISON: None. TECHNIQUE: One radiographic view of the abdomen was obtained. FINDINGS: The bowel gas pattern is nonspecific without dilated loops of small or large bowel. There i s no evidence for organomegaly or pneumoperitoneum. The osseous structures are intact. Right renal pelvis calculus measuring 10 mm. Right ureteral stent with superior and inferior pigtails in appropri ate position projecting over the pelvis and right renal sinus.. Fecal material and gas are demonstrat ed throughout the colon and rectum. Scoliosis changes apex L2 on the right. IMPRESSION: 1. Right renal pelvis calculus measuring 10 mm. 2. Right ureteral stent with superior and inferior pigtails in appropriate position. 3. Nonspecific bowel gas pattern. 4. Severe scoliosis changes.
[2024-01-20] MEDS: IV FLUID CONTINUATION 1,000 ML IV ONE (10:00)
[2024-01-20] MEDS: MIDAZOLAM 2 MG/2 ML VIAL IV PRN (10:07)
[2024-01-20] MEDS: DEXAMETHASONE SOD PHOSPHATE 4 MG/ML 1 ML VIAL IV ONE (10:07)
[2024-01-20] MEDS: LACTATED RINGERS 1,000 ML IV SCH (10:07)
[2024-01-20] MEDS: ONDANSETRON 4 MG/2 ML VIAL IVP ONE (10:07)
[2024-01-20] MEDS ORDERED: LIDOCAINE 1% INJ 10MG/ML (20 ML MDV) ONE (10:27)
[2024-01-20] MEDS ORDERED: fentaNYL (PF) 50 MCG/ML 2 ML AMP ONE (10:27)
[2024-01-20] MEDS ORDERED: PROPOFOL 10 MG/ML 20 ML VIAL IV ONE (10:27)
[2024-01-20] MEDS ORDERED: ePHEDrine 50 MG/ML 1 ML VIAL ONE (10:27)
[2024-01-20] MEDS ORDERED: KETOROLAC 15 MG/ML 1 ML VIAL ONE (10:27)
[2024-01-20] MEDS ORDERED: MIDAZOLAM 2 MG/2 ML VIAL ONE (10:27)
--- NOTE | 2024-01-20 11:43 | P.OP ---
Date of Procedure: 01/20/24 Preoperative Diagnosis: Right ureteral stone Postoperative Diagnosis: Same Procedure(s) Performed: Cystoscopy, right ureteroscopy, holmium laser lithotripsy, stone basketing and stent removal Implants: None Anesthesia: JOHNA Surgeon: Chet Tony Estimated Blood Loss (ml): 5 Pathology: other (Right ureteral stone) Condition: stable Disposition: PACU Indications for Procedure: This is a 53-year-old female with history of 2 right-sided ureteral stone, patient presented septic on presentation underwent right-sided stent insertion on January 03. Presents today for definitive stone management. Option of right- sided ureteroscopy with holmium laser was discussed with her in detail. Aware the risk which includes but not limited to bleeding, infection, injury to the ureter Operative Findings: Right-sided mid ureteral stone, large stone in the renal pelvis Description of Procedure: Patient brought to the operating room, general anesthesia was induced. She was prepped and draped in sterile fashion and placed in dorsolithotomy position. Cystoscopy fitted with a [address] [employer] sheath was inserted per urethra, cystoscopy was performed which showed no abnormality within the bladder. Attention was then carried to the right ureteral orifice, the stent was removed intact. Next a semirigid ureteroscope was inserted per urethra and advanced up the right ureteral orifice, a stone was encountered in the mid ureter. Using the holmium laser the stone was fragmented, stone fragments were removed using the stone basket. At this time the semirigid ureteroscope was advanced up into the proximal which showed no additional stones, pullback ureteroscopy was performed showed no injury to the ureter or any ureteral stones, as a ureteroscope was withdrawn a sensor wire was advanced through. Next under fluoroscopy and [address] [employer] access sheath was passed over the wire and into the proximal ureter. Next a flexible ureteroscope was inserted through the access sheath, patient did have a torturous proximal ureter near the UPJ, at this point I advanced a wire through the ureteroscope and I was not able to advance the scope over the wire and into the collecting system. Renoscopy was performed which showed a large renal pelvic stone. Using the holmium laser the stone was dusted, repeat renoscopy showed no sizable fragments or injury to the kidney, on fluoroscopy there was no radiopaque densities. Pullback ureteroscopy was performed showed no injury to the ureter or any ureteral stones, there was no ureteral edema thus a stent was not placed. The bladder was emptied at the end of the case. Patient tolerated procedure well was taken to recovery in stable condition
[2024-01-20 11:49] VITALS: TEMP 97.3
--- NOTE | 2024-01-20 11:55 | FL ---
EXAMINATION TYPE: FL guidance operating room Intraoperative/procedural fluoroscopic services were pro vided. Total fluoroscopy time is 14.3 seconds with a total of 2 submitted images to PACS. Please see the operative/procedural note for further details. DAP: [id number]
[2024-01-20 11:57] VITALS: RESP 16
[2024-01-20 12:35] VITALS: BP 119/62; PULSE 70
== END 2024-01-20 12:52 | disposition home or self-care (01) ==
LOC: OR 09:05
PROVIDERS: ATTEND Urology
DX: N20.1 Calculus of ureter (principal); F17.210 Nicotine dependence, cigarettes, uncomplicated; Z79.899 Other long term (current) drug therapy
CPT/HCPCS: 52353; 81025; 82365; 74018; C1758; C1769; J2250; J1100; J0690; J2405; J2001; J3010; J1885; J2704

== ENCOUNTER 2025-01-15 18:46 | Emergency (ER) | payer BC ==
[2025-01-15 18:50] VITALS: RESP 18; TEMP 98.1
--- NOTE | 2025-01-15 20:04 | ED ---
Back Pain HPI - General Chief Complaint: Back Pain/Injury Stated Complaint: Shoulder/Neck pain L side/Numbness Time Seen by Provider: 01/15/25 19:49 Source: patient, RN notes reviewed Mode of arrival: ambulatory Limitations: no limitations - History of Present Illness Initial Comments: This is a 54-year-old female who presents to the emergency department for back pain and left arm numbness. States that it started with back pain about 5 days ago. This is in the mid to upper back and neck. 2 days ago she started to get numbness down the left arm. She did go to an emergency department earlier today and they did a CT scan of the neck showing arthritis and symptoms were attributed to a pinched nerve. However, family with her is concerned about a cardiac process and just wants to have any problems with her heart rate ruled out. Denies any pain in her chest or shortness of breath. - Related Data Home Medications Medication Instructions Recorded Confirmed Sertraline [Zoloft] 50 mg PO DAILY 01/03/24 01/20/24 Previous Rx's Medication Instructions Recorded Acetaminophen Tab [Tylenol] 650 mg PO Q6HR PRN tab 01/07/24 Ciprofloxacin HCl [Cipro] 500 mg PO Q12HR #24 tab 01/07/24 Ciprofloxacin HCl [Cipro] 250 mg PO Q12HR #10 tablet 01/20/24 Ketorolac [Toradol] 10 mg PO Q6HR PRN #15 tab 01/20/24 Allergies Allergy/AdvReac Type Severity Reaction Status Date / Time No Known Allergies Allergy Verified 01/15/25 18:50 Review of Systems ROS Statement: Those systems with pertinent positive or pertinent negative responses have been documented in the HPI. ROS Other: All systems not noted in ROS Statement are negative. Past Medical History Past Medical History: No Reported History Additional Past Medical History / Comment(s): kidney stones History of Any Multi-Drug Resistant Organisms: None Reported Past Surgical History: Breast Surgery, Section Additional Past Surgical History / Comment(s): breast augmentation c sections x2, urteral stent placed Past Anesthesia/Blood Transfusion Reactions: No Reported Reaction Past Psychological History: Anxiety Smoking Status: Light tobacco smoker Past Alcohol Use History: Occasional Past Drug Use History: None Reported - Past Family History Father Family Medical History: No Reported History General Exam Limitations: no limitations General appearance: alert, in no apparent distress Head exam: Present: atraumatic, normocephalic, normal inspection Respiratory exam: Present: normal lung sounds bilaterally. Absent: respiratory distress, wheezes, rales, rhonchi, stridor Cardiovascular Exam: Present: regular rate, normal rhythm GI/Abdominal exam: Present: soft, normal bowel sounds. Absent: distended, tenderness, guarding, rebound, rigid Extremities exam: Present: full ROM. Absent: tenderness Back exam: Present: full ROM. Absent: tenderness Neurological exam: Present: alert, oriented X3, CN II-XII intact Psychiatric exam: Present: normal affect, normal mood Skin exam: Present: warm, dry, intact, normal color. Absent: rash Course Vital Signs 01/15/25 01/15/25 18:47 22:27 Temperature 98.1 F Pulse Rate 64 52 L Respiratory 18 18 Rate Blood Pressure 160/70 141/89 O2 Sat by Pulse 98 99 Oximetry Medical Decision Making - Medical Decision Making This is a 54 year old female who presents to the emergency department for back pain. Was pt. sent in by a medical professional or institution? @ -No Did you speak to anyone other than the patient for history? @ -No Did you review nursing and triage notes? @ -Yes, and I agree, it is accurate with regards to the patient's symptoms. Were old charts reviewed? @ -No Differential Diagnosis? @ -Differential Back Pain: Strain, zoster, cauda equina syndrome, epidural abscess, vertebral os teomyelitis, discitis, fracture, subluxation, disc herniation, DJD, spinal stenosis, dissection, AAA, pancreatitis, peptic ulcer disease, pyelonephritis, kidney stone, this is not meant to be an all-inclusive list. EKG interpreted by me (3pts min.)? @ -EKG interpreted by me demonstrating the following: Sinus bradycardia. Ventricular rate 59 bpm, DC interval 128 ms, QRS duration 116 ms, QTc 441 ms. X-rays interpreted by me (1pt min.)? @ -Not obtained CT interpreted by me (1pt min.)? @ -Not obtained U/S interpreted by me (1pt. min.)? @ -Not obtained What testing was considered but not performed? (CT, X-rays, U/S, labs)? Why? @ -None What meds were considered but not given? Why? @ -None Did you discuss the management of the patient with other professionals? @ -No Did you reconcile home meds? @ -No Was smoking cessation discussed for >3mins.? @ -No Was critical care preformed (if so, how long)? @ -No Were there social determinants of health that impacted care today? How? (Homelessness, low income, unemployed, alcoholism, drug addiction, transportation, low edu. Level, literacy, decrease access to med. care, [place] [facility], rehab)? @ -No Was there de-escalation of care discussed even if they declined? (Discuss DNR or withdrawal of care, Hospice)? @ -No What co-morbidities impacted this encounter? (DM, HTN, Smoking, COPD, CAD, Cancer, CVA, Hep., AIDS, mental health diagnosis, sleep apnea, morbid obesity)? @ -None Was patient admitted / discharged? @ -Discharged. Lab work unremarkable. D-dimer and troponin negative. Pain wa s well-controlled in the emergency department. The description of her symptoms is consistent with a cervical radiculopathy. She had a CT scan of the cervical spine done at a different emergency department earlier today and was also given a prescription for prednisone, [place], and lidocaine patches. Advised she fill those prescriptions and take them as prescribed and follow-up with her PCP for reevaluation. Patient discharged home in stable condition. Case discussed with ED attending Dr. Nash. Return precautions reviewed in depth, the patient is instructed to return to the emergency department with any new, worsening, or concerning symptoms. Patient verbalized understanding. Undiagnosed new problem with uncertain prognosis? @ -None Drug Therapy requiring intensive monitoring for toxicity (Heparin, Nitro, Insulin, Cardizem)? @ -None Were any procedures done? @ -None Diagnosis/symptom? @ -Cervical radiculopathy, back pain Acute, or Chronic, or Acute on Chronic? @ -Acute Uncomplicated (without systemic symptoms) or Complicated (systemic symptoms)? @ -Uncomplicated Side effects of treatment? @ -None Exacerbation, Progression, or Severe Exacerbation] @ -Not applicable Poses a threat to life or bodily function? @ -No - Lab Data Result diagrams: 01/15/25 20:10 01/15/25 20:10 Lab Results 01/15/25 01/15/25 01/15/25 Range/Units 20:10 20:10 20:10 WBC 8.31 (4.50-10.00) 10*3/uL RBC 4.41 (4.10-5.20) 10*6/uL Hgb 14.3 (12.0-15.0) g/dL Hct 41.7 (37.2-46.3) % MCV 94.6 (80.0-97.0) fL MCH 32.4 H (27.0-32.0) pg MCHC 34.3 (32.0-37.0) g/dL Plt Count 201 (140-440) 10*3/uL MPV 10.9 (9.5-12.2) fL Immature Gran % (Auto) 0.2 % Neutrophils % 61.8 % Lymphocytes % 28.5 % Monocytes % 7.1 % Eosinophils % 1.8 % Basophils % 0.6 % Immature Gran # 0.02 (0.00-0.04) 10*3/uL Neutrophils # 5.13 (1.80-7.70) 10*3/uL Lymphocytes # 2.37 (0.90-5.00) 10*3/uL Monocytes # 0.59 (0.20-1.00) 10*3/uL Eosinophils # 0.15 (0.04-0.35) 10*3/uL Basophils # 0.05 (0.00-0.10) 10*3/uL D-Dimer <0.17 (<0.60) mg/L FEU Sodium 137 (137-145) mmol/L Potassium 3.9 (3.5-5.1) mmol/L Chloride 105 (98-107) mmol/L Carbon Dioxide 23 (22-30) mmol/L Anion Gap 9 mmol/L BUN 13 (7-17) mg/dL Creatinine 0.62 (0.52-1.04) mg/dL Est GFR (CKD-EPI)AfAm >90 (>60 ml/min/1.73 sqM) Est GFR (CKD-EPI)NonAf >90 (>60 ml/min/1.73 sqM) Glucose 79 (74-99) mg/dL Calcium 9.9 (8.4-10.2) mg/dL Total Bilirubin 0.6 (0.2-1.3) mg/dL AST 25 (14-36) U/L ALT 19 (4-34) U/L Alkaline Phosphatase 127 H (38-126) U/L Troponin I (0.000-0.034) ng/mL Total Protein 6.9 (6.3-8.2) g/dL Albumin 4.5 (3.5-5.0) g/dL // Range/Units 20:10 WBC (4.50-10.00) 10*3/uL RBC (4.10-5.20) 10*6/uL Hgb (12.0-15.0) g/dL Hct (37.2-46.3) % MCV (80.0-97.0) fL MCH (27.0-32.0) pg MCHC (32.0-37.0) g/dL Plt Count (140-440) 10*3/uL MPV (9.5-12.2) fL Immature Gran % (Auto) % Neutrophils % % Lymphocytes % % Monocytes % % Eosinophils % % Basophils % % Immature Gran # (0.00-0.04) 10*3/uL Neutrophils # (1.80-7.70) 10*3/uL Lymphocytes # (0.90-5.00) 10*3/uL Monocytes # (0.20-1.00) 10*3/uL Eosinophils # (0.04-0.35) 10*3/uL Basophils # (0.00-0.10) 10*3/uL D-Dimer (<0.60) mg/L FEU Sodium (137-145) mmol/L Potassium (3.5-5.1) mmol/L Chloride (98-107) mmol/L Carbon Dioxide (22-30) mmol/L Anion Gap mmol/L BUN (7-17) mg/dL Creatinine (0.52-1.04) mg/dL Est GFR (CKD-EPI)AfAm (>60 ml/min/1.73 sqM) Est GFR (CKD-EPI)NonAf (>60 ml/min/1.73 sqM) Glucose (74-99) mg/dL Calcium (8.4-10.2) mg/dL Total Bilirubin (0.2-1.3) mg/dL AST (14-36) U/L ALT (4-34) U/L Alkaline Phosphatase (38-126) U/L Troponin I <0.012 (0.000-0.034) ng/mL Total Protein (6.3-8.2) g/dL Albumin (3.5-5.0) g/dL Disposition Clinical Impression: Back pain, Cervical radiculopathy Disposition: HOME SELF-CARE Instructions (If sedation given, give patient instructions): Cervical Radiculopathy (ED), Back Pain (ED) Additional Instructions: Return to the emergency department with any new, worsening, or concerning symptoms. Take the medications you were prescribed at the other facility. Follow up with your primary care provider in 1-2 days. Is patient prescribed a controlled substance at d/c from ED?: No Referrals: Yady Valentino MD [Primary Care Provider] - 1-2 days Time of Disposition: 22:01
[2025-01-15] MEDS: KETOROLAC 15 MG/ML 1 ML VIAL IVP STA (20:24)
[2025-01-15 20:56] LABS: Basophils # (A) 0.05 10*3/uL (0.00-0.10); Basophils % (A) 0.6 %; Eosinophils # (A) 0.15 10*3/uL (0.04-0.35); Eosinophils % (A) 1.8 %; HCT 41.7 % (37.2-46.3); HGB 14.3 g/dL (12.0-15.0); Lymphocytes # (A) 2.37 10*3/uL (0.90-5.00); Lymphocytes % (A) 28.5 %; MCH 32.4 pg (27.0-32.0); MCHC 34.3 g/dL (32.0-37.0); MCV 94.6 fL (80.0-97.0); Mean Platelet Volume 10.9 fL (9.5-12.2); Monocytes # (A) 0.59 10*3/uL (0.20-1.00); Monocytes % (A) 7.1 %; Neutrophils # (A) 5.13 10*3/uL (1.80-7.70); Neutrophils % (A) 61.8 %; Platelet Count 201 10*3/uL (140-440); RBC 4.41 10*6/uL (4.10-5.20); RDW 13.4 % (11.5-14.5); WBC 8.31 10*3/uL (4.50-10.00)
[2025-01-15 21:21] LABS: ALT 19 U/L (4-34); AST 25 U/L (14-36); African American GFR (CKD) >90 (>60 ml/min/1.73 sqM); Albumin 4.5 g/dL (3.5-5.0); Alkaline Phosphatase 127 U/L (38-126); Anion Gap 9 mmol/L; Blood Urea Nitrogen 13 mg/dL (7-17); Calcium 9.9 mg/dL (8.4-10.2); Carbon Dioxide 23 mmol/L (22-30); Chloride 105 mmol/L (98-107); Glucose 79 mg/dL (74-99); Non-African American GFR(CKD) >90 (>60 ml/min/1.73 sqM); Potassium 3.9 mmol/L (3.5-5.1); Sodium 137 mmol/L (137-145); Total Bilirubin 0.6 mg/dL (0.2-1.3); Total Protein 6.9 g/dL (6.3-8.2)
[2025-01-15] MEDS: MORPHINE SULFATE 4 MG/ML SYRINGE IVP STA (21:48)
[2025-01-15] MEDS: DEXAMETHASONE SOD PHOSPHATE 10 MG/ML 1 ML VIAL IVP STA (22:15)
[2025-01-15] MEDS: traMADol 50 MG STARTER PACK 3 TAB BTL PO STA (22:16)
[2025-01-15 22:28] VITALS: BP 141/89; PULSE 52
== END 2025-01-15 22:28 | disposition home or self-care (01) ==
LOC: EC 18:46
DX: M47.22 Other spondylosis with radiculopathy, cervical region (principal); M54.9 Dorsalgia, unspecified; F17.200 Nicotine dependence, unspecified, uncomplicated
CPT/HCPCS: 36415; 93005; 85379; 80053; 84484; 85025; 99283; 96374; 96375 ×2; J2270; J1100; J1885

== ENCOUNTER → 2025-02-08 | Outpatient (CLI) | payer BC ==
--- NOTE | 2025-02-08 21:37 | MR ---
INDICATION: Patient age:Female; 54 years old; Reason for study: M47.22, M48.02, M54.2; [facility]. COMPARISON: Cervical spine radiograph 01/31/2025, outside institution CT cervical spine 01/15/2025. TECHNIQUE: Multi planar, multi sequence imaging was performed of the cervical spine. No Gadolinium wa s given. FINDINGS: Alignment: The cervical vertebral bodies have preserved heights. Reversal of the normal cervical lord osis with grade 1 retrolisthesis of C4 on C5 and C5 on C6. Bones: Multilevel type I Modic changes most pronounced involving the endplates around the C3-C4 and C 7-T1 discs. Cord: The spinal cord is unremarkable with regards to their signal intensity and morphology. Discs: Multilevel disc desiccation is present with disc height loss. C2-C3: No significant disc pathology. The spinal canal is patent. No neural foraminal stenosis. C3-C4: Broad-based disc bulge with mild effacement of the anterior thecal sac. No abutment of the erica tral spinal cord. No significant spinal canal stenosis. Uncovertebral joint hypertrophy. Mild right neural foraminal stenosis. The left neural foramen is patent. C4-C5: Broad-based disc bulge with mild effacement of the anterior thecal sac. No involvement of the ventral spinal cord. No significant spinal canal stenosis. Uncovertebral joint hypertrophy. Mild left and minimal right neural foraminal stenosis. C5-C6: Broad-based disc bulge with mild effacement of the anterior thecal sac. There is abutment of t he ventral spinal cord. Mild spinal canal stenosis. Uncovertebral joint hypertrophy. Mild bilateral n eural foraminal stenosis. C6-C7: Broad-based disc bulge with mild effacement of the anterior thecal sac. No involvement of the ventral spinal cord. No significant spinal canal stenosis. Uncovertebral joint hypertrophy. Moderate bilateral neuroforaminal stenosis. C7-T1: Left subarticular posterior disc osteophyte complex with minimal effacement of the anterior th ecal sac. No significant spinal canal stenosis. The right neural foramen is patent. Moderate left twyla ral foraminal stenosis. Other: None. IMPRESSION: 1. No evidence for disc herniation or significant spinal canal stenosis. 2. Multilevel disc degeneration with associated osteoarthritic changes as described above. [facility], , 02/08/2025 9:35 PM
== END | disposition home or self-care (01) ==
LOC: RADMRIMAIN 20:45
PROVIDERS: ATTEND Orthopaedic Surgery
DX: M48.02 Spinal stenosis, cervical region (principal); M50.123 Cervical disc disorder at C6-C7 level with radiculopathy; M47.22 Other spondylosis with radiculopathy, cervical region
CPT/HCPCS: 72141